=== PATIENT | female | born 1955 | race Caucasian/White ===

== ENCOUNTER 2018-09-21 23:10 | Emergency (ER) | payer OTHER, SELFPAY ==
[2018-09-21 23:15] VITALS: BP 139/93; PULSE 102; RESP 22; TEMP 36.5
[2018-09-21] MEDS: Haloperidol 5 MG/ML VIAL (23:30)
--- NOTE | 2018-09-21 23:37 | W.ED.GENAD ---
Discharge Plan Disposition Patient Disposition: HOME Condition: Stable Discharge Details Chief Complaint: PsychEval Clinical Impression: Schizoaffective disorder Primary Care Provider: Kathleen Sellers ED Provider: Ender Bo Home Meds and New Rx's Prescriptions: No Action lorazepam 1 mg tablet 1 mg PO HS Qty: 30 RF: 2 trazodone 50 mg tablet 50 mg PO HS Qty: 90 RF: 3 sertraline 50 mg tablet 50 mg PO DAILY Qty: 30 RF: 3 Discharge Instructions Instructions: Schizoaffective Disorder (ED) Additional Instructions: Please take your home medications as directed. Please utilize the resources that we have enabled for you to help and assist at home. Please follow-up with your counselor and support ancillary staff as often as possible. If you notice any worsening of your symptoms, or any new symptoms such as change in mental status, auditory visual hallucinations, vomiting, diarrhea, fever, chills, shortness of breath, chest pain, numbness, weakness, or fainting , please return immediately to the emergency department for reevaluation. Please follow up with your primary care provider as soon as possible for reassessment and reevaluation. As always, it was a pleasure participating in your medical care today. Referrals: Kathleen Sellers, SREE [Primary Care Provider] - Discharge Data Discharge Date/Time-TO BE ENTERED AT DEPARTURE: 09/22/18 10:37 Medical Decision Making <Tony Mckeon MD - Last Filed: 09/24/18 10:12> 63 yo female with hx of schizoaffective disorder with hx of paranoia comes in with state police and mental health. Apparently she hasn't taken her meds including lorazepam, sertraline and trazadone for months now. The states that her paranoia and hallucinations have been signifncantly worsening over that time and today he left and went to his brothers house. The pt called 911 when trying to call her and when PD arrived she wouldn't let them in do to paranoia, then after being on scene for about 2-3 horus mental health evaluated and was able to have her brother transport her here. She is currently only oriented to name and is sitting rocking in the bed back and forth yelling that she wants to go home. She is not able to show any meaningful thought process and constantly tries to leave the room despite her and brother telling her to stay in the room. She is not cooperative and became physical towards staff when trying to leave the room and given she doesn't have capacity to make her own decisions and my fear she is at risk to harm herself and others I am going to medically sedate her with haldol and ativan. I suspect her presentation is due to not taking her meds for her underlying psychiatric disesae as her family states this is not out of the ordinary for her when she is off her meds. pt now more calm and cooperative after 5mg haldol and 2mg ativan both IM. She is willing to let us do blood draws though is very suspicious of us. She is not willing to take any meds or other medical therapy. [facility] mental health provider states there is no qhmp to finalize the involuntary paperwork and status of thepatient. She will try again in the AM pt is now caox4 and has been cooperative, qhmp coming by this morning to do their assessment. Pt will be signed out to Dr. bo pending their eval Differential Diagnosis schizophrenia, paranoia Lab Data Lab results reviewed: Yes I reviewed the patient's lab results. <Ender Bo, DO - Last Filed: 09/22/18 20:20> The patient was signed out to me my my colleague pending psychiatric evaluation. Patient has been seen and assessed by the mental health advisors, they recommend discharge home. The patient has no homicidal or suicidal ideations. Currently she is acting normally, responds to all questions, agrees with the need to take home medications, and agrees with help and support at home. We have elicited the help of our case aide, and we will be setting up close follow-up with the patient and additional assistance at home. The patient demonstrating a normal mental status and a normal psychiatric status I feel that she can be safely discharged home as this is the recommendation of the psychiatric/mental health staff. Discussed red flags which to return with the patient and family and they understand I have extensively reviewed the treatment plan and discharge instructions with the patient and their family. I have addressed all patient concerns at this time. The patient and family was made aware of what symptoms to monitor for that would warrant a return to the emergency department. Discussed the plan with the patient and family, they demonstrate verbal understanding and agreement with our assessment and plan at this time. HPI <Tony Mckeon MD - Last Filed: 09/24/18 10:12> General Mode of arrival: ambulatory. Date/Time Provider Initiated Documentation: 09/21/18 23:20. Limitations to Documentation: altered mental status. Information obtained by: patient. History of Present Illness 63 year old F presents to the emergency department with the chief complaint of I want to go home, Patient started experiencing this year(s) (2) and it has been constant. No relieving factors improve symptom(s), No exacerbating factors reported . Patient notes no other symptoms.. Patient did receive the following treatments prior to arrival, none Related Data Home Medications Medication Instructions Recorded Confirmed sertraline 50 mg tablet 50 mg PO DAILY #30 tab 07/10/18 09/21/18 trazodone 50 mg tablet 50 mg PO HS #90 tab-cap 07/10/18 09/21/18 lorazepam 1 mg tablet 1 mg PO HS #30 tab 08/15/18 09/21/18 Previous Rx's Medication Instructions Recorded sertraline 50 mg tablet 50 mg PO DAILY #30 tab 07/10/18 trazodone 50 mg tablet 50 mg PO HS #90 tab-cap 07/10/18 lorazepam 1 mg tablet 1 mg PO HS #30 tab 08/15/18 Allergies Allergy/AdvReac Type Severity Reaction Status Date / Time prednisone AdvReac Severe Psychosis Verified 09/21/18 23:57 General Stated Complaint: PsychEval ALEXEY: 2 Review of Systems <Tony Mckeon MD - Last Filed: 09/24/18 10:12> Review of Systems Unobtainable due to mental status PFSH <Tony Mckeon MD - Last Filed: 09/24/18 10:12> Surgical History Cervical Procedure (08/31/10) Colonoscopy - MAC Ligation of fallopian tube (~1987) Family History Mother Diabetes Essential hypertension Father Heart disease Asthma Grandfather No problems noted. Grandfather No problems noted. Grandmother No problems noted. Grandmother No problems noted. Sister Asthma Brother No problems noted. Brother No problems noted. Brother No problems noted. Brother No problems noted. Social History household members: spouse current occupational status: retired pets and animals: No frequency: daily duration: < 15 minutes/day Smoking/Tobacco Use Status: Never second hand exposure: Yes alcohol intake: never anastacia/oriental orthodox: Moravian special anastacia needs: No Exam <Tony Mckeon MD - Last Filed: 09/24/18 10:12> Const General: disheveled Orientation: alert and other (oriented to name and time of day only) [facility] Head: normal to inspection Ears: external ears normal General nose exam: external nose normal Mouth: moist mucous membranes Eyes General: appearance normal, both eyes and all related structures Neck Neck: normal visual inspection Resp Effort & Inspection: normal respiratory effort and able to speak in complete sentences Cardio Rate: regular rate Skin General skin exam: no rashes or lesions noted Neuro General: alert Extrem General: normal to inspection Psych Appearance: disheveled Speech and Movement: agitated Attitude: not cooperative Course <Tony Mckeon MD - Last Filed: 09/24/18 10:12> Vital Signs Pulse 102 H 09/21/18 23:15 Respiratory Rate 09/21/18 23:15 Blood Pressure 139/93 H 09/21/18 23:15 Pulse 102 H 09/21/18 23:15 Respiratory Rate 22 09/21/18 23:15 Respiratory Effort Non-Labored 09/21/18 23:20 Blood Pressure 139/93 H 09/21/18 23:15 Blood Pressure Position Sitting 09/21/18 23:15 Comment 09/21/18 23:15
[2018-09-21] MEDS: LORazepam 2 MG/ML VIAL (23:42)
--- NOTE | 2018-09-21 23:43 | ED.GENADUL_ITS ---
Discharge Plan Disposition Patient Disposition: HOME Condition: Stable Discharge Details Chief Complaint: PsychEval Clinical Impression: Schizoaffective disorder Primary Care Provider: Kathleen Sellers ED Provider: Ender Bo Home Meds and New Rx's Prescriptions: No Action lorazepam 1 mg tablet 1 mg PO HS Qty: 30 RF: 2 trazodone 50 mg tablet 50 mg PO HS Qty: 90 RF: 3 sertraline 50 mg tablet 50 mg PO DAILY Qty: 30 RF: 3 Discharge Instructions Instructions: Schizoaffective Disorder (ED) Additional Instructions: Please take your home medications as directed. Please utilize the resources that we have enabled for you to help and assist at home. Please follow-up with your counselor and support ancillary staff as often as possible. If you notice any worsening of your symptoms, or any new symptoms such as change in mental status, auditory visual hallucinations, vomiting, diarrhea, fever, chills, shortness of breath, chest pain, numbness, weakness, or fainting , please return immediately to the emergency department for reevaluation. Please follow up with your primary care provider as soon as possible for reassessment and reevaluation. As always, it was a pleasure participating in your medical care today. Referrals: Kathleen Sellers, SREE [Primary Care Provider] - Discharge Data Discharge Date/Time-TO BE ENTERED AT DEPARTURE: 09/22/18 10:37 Medical Decision Making <Tony Mckeon MD - Last Filed: 09/24/18 10:12> 63 yo female with hx of schizoaffective disorder with hx of paranoia comes in with state police and mental health. Apparently she hasn't taken her meds including lorazepam, sertraline and trazadone for months now. The states that her paranoia and hallucinations have been signifncantly worsening over that time and today he left and went to his brothers house. The pt called 911 when trying to call her and when PD arrived she wouldn't let them in do to paranoia, then after being on scene for about 2-3 horus mental health evaluated and was able to have her brother transport her here. She is currently only oriented to name and is sitting rocking in the bed back and forth yelling that she wants to go home. She is not able to show any meaningful thought process and constantly tries to leave the room despite her and brother telling her to stay in the room. She is not cooperative and became physical towards staff when trying to leave the room and given she doesn't have capacity to make her own decisions and my fear she is at risk to harm herself and others I am going to medically sedate her with haldol and ativan. I suspect her presentation is due to not taking her meds for her underlying psychiatric disesae as her family states this is not out of the ordinary for her when she is off her meds. pt now more calm and cooperative after 5mg haldol and 2mg ativan both IM. She is willing to let us do blood draws though is very suspicious of us. She is not willing to take any meds or other medical therapy. [facility] mental health provider states there is no qhmp to finalize the involuntary paperwork and status of thepatient. She will try again in the AM pt is now caox4 and has been cooperative, qhmp coming by this morning to do their assessment. Pt will be signed out to Dr. bo pending their eval Differential Diagnosis schizophrenia, paranoia Lab Data Lab results reviewed: Yes I reviewed the patient's lab results. <Ender Bo, DO - Last Filed: 09/22/18 20:20> The patient was signed out to me my my colleague pending psychiatric evaluation. Patient has been seen and assessed by the mental health advisors, they recommend discharge home. The patient has no homicidal or suicidal ideations. Currently she is acting normally, responds to all questions, agrees with the need to take home medications, and agrees with help and support at home. We have elicited the help of our therapeutic case manager, and we will be setting up close follow-up with the patient and additional assistance at home. The patient demonstrating a normal mental status and a normal psychiatric status I feel that she can be safely discharged home as this is the recommendation of the psychiatric/mental health staff. Discussed red flags which to return with the patient and family and they understand I have extensively reviewed the treatment plan and discharge instructions with the patient and their family. I have addressed all patient concerns at this time. The patient and family was made aw are of what symptoms to monitor for that would warrant a return to the emergency department. Discussed the plan with the patient and family, they demonstrate verbal understanding and agreement with our assessment and plan at this time. HPI <Tony Mckeon MD - Last Filed: 09/24/18 10:12> General Mode of arrival: ambulatory . Date/Time Provider Initiated Documentation: 09/21/18 23:20 . Limitations to Documentation: altered mental status . Information obtained by: patient . History of Present Illness 63 year old F presents to the emergency department with the chief complaint of I want to go home, Patient started experiencing this year(s) (2) and it has been constant. No relieving factors improve symptom(s), No exacerbating factors reported . Patient notes no other symptoms.. Patient did receive the following treatments prior to arrival, none Related Data Home Medications Medication Instructions Recorded Confirmed sertraline 50 mg tablet 50 mg PO DAILY #30 tab 07/10/18 09/21/18 trazodone 50 mg tablet 50 mg PO HS #90 tab-cap 07/10/18 09/21/18 lorazepam 1 mg tablet 1 mg PO HS #30 tab 08/15/18 09/21/18 Previous Rx's Medication Instructions Recorded sertraline 50 mg tablet 50 mg PO DAILY #30 tab 07/10/18 trazodone 50 mg tablet 50 mg PO HS #90 tab-cap 07/10/18 lorazepam 1 mg tablet 1 mg PO HS #30 tab 08/15/18 Allergies Allergy/AdvReac Type Severity Reaction Status Date / Time prednisone AdvReac Severe Psychosis Verified 09/21/18 23:57 General Stated Complaint: PsychEval ALEXEY: 2 Review of Systems <Tony Mckeon MD - Last Filed: 09/24/18 10:12> Review of Systems Unobtainable due to mental status PFSH <Tony Mckeon MD - Last Filed: 09/24/18 10:12> Surgical History Cervical Procedure (08/31/10) Colonoscopy - MAC Ligation of fallopian tube (~1987) Family History Mother Diabetes Essential hypertension Father Heart disease Asthma Grandfather No problems noted. Grandfather No problems noted. Grandmother No problems noted. Grandmother No problems noted. Sister Asthma Brother No problems noted. Brother No problems noted. Brother No problems noted. Brother No problems noted. Social History household members: spouse current occupational status: retired pets and animals: No frequency: daily duration: < 15 minutes/day Smoking/Tobacco Use Status: Never second hand exposure: Yes alcohol intake: never anastacia/religious: Mosque special anastacia needs: No Exam <Tony Mckeon MD - Last Filed: 09/24/18 10:12> Const General: disheveled Orientation: alert and other (oriented to name and time of day only) [facility] Head: normal to inspection Ears: external ears normal General nose exam: external nose normal Mouth: moist mucous membranes Eyes General: appearance normal, both eyes and all related structures Neck Neck: normal visual inspection Resp Effort & Inspection: normal respiratory effort and able to speak in complete sentences Cardio Rate: regular rate Skin General skin exam: no rashes or lesions noted Neuro General: alert Extrem General: normal to inspection Psych Appearance: disheveled Speech and Movement: agitated Attitude: not cooperative Course <Tony Mckeon MD - Last Filed: 09/24/18 10:12> Vital Signs Pulse 102 H 09/21/18 23:15 Respiratory Rate 09/21/18 23:15 Blood Pressure 139/93 H 09/21/18 23:15 Pulse 102 H 09/21/18 23:15 Respiratory Rate 22 09/21/18 23:15 Respiratory Effort Non-Labored 09/21/18 23:20 Blood Pressure 139/93 H 09/21/18 23:15 Blood Pressure Position Sitting 09/21/18 23:15 Comment 09/21/18 23:15
--- NOTE | 2018-09-22 00:54 | PDOC.MHCN_ITS ---
Date of service: 09/22/18 Time of Service: 00:43 Mental Health Crisis Note Presenting Issue How did you arrive at the ED and why did you come: Patient arrived at the emergency department for disturbances in mental health. Precipitating Factors It is unknown whether or not the patient presents with SI or HI. Patient is not oriented to date, time, place, or person. According to the patient's she has not been taking her anti-psychotic medication for months. He states that she often has auditory hallucinations and thinks that people are trying to poison her. Her states that she has expressed thoughts of suicide in the past and threatened to take a bottle of her pills. Patient was crying inconsolably repeating the single sentence of i want to see Florencio. (Florencio being her ). Patient was not able to answer simple direct questions. Disposition BEHAVIOR: Patient's behavior was not consistent. At times she would regress and curl into herself while other times she would try aggressively leave the hospital emergency department. EYE CONTACT: Patient made little to no eye contact MOOD: Paranoid and Uncooperative AFFECT: Labile APPETITE: Unknown SLEEP(trouble falling/staying asleep: Unknown Plan Patient will remain at the hospital until a bed becomes available at a mental health treatment facility. Patient is on an involuntary status and the second certification is required to take place within 24 hours from receipt of EE paperwork. Signature Clinician's Name/Title: Amy Hoover - [facility] Emergency Clinician
[2018-09-22 00:57] LABS: Abs Immature Grans 0.01 k/cumm (0.0-0.09); Absolute Basophil Count 0.02 k/cumm (0.0-0.2); Absolute Eosinophil Count 0.02 k/cumm (0.0-0.7); Absolute Lymphocyte Count 1.91 k/cumm (1.2-3.4); Absolute Monocyte Count 0.64 k/cumm (0.11-0.7); Absolute Neutrophil Count 4.43 k/cumm (1.2-6.7); Basophils % 0.3; Eosinophils % 0.3; HCT 35.4 % (36.0-46.0); HGB 11.8 g/dL (12.0-15.5); Immature Grans % 0.1; Lymphocytes % 27.2; Mean Corp. HGB Concentration 33.3 g/dL (32.0-36.0); Mean Corpuscular Hemoglobin 29.9 pg (27.0-33.0); Mean Corpuscular Volume 89.6 fL (80-95); Mean Platelet Volume 9.2 fL (8.0-11.0); Monocytes % 9.1; Platelet Count 198 x1000/uL (130-400); RBC 3.95 m/cumm (4.00-5.20); RBC Distribution Width 13.2 % (11.7-14.6); White Blood Cell Count 7.03 k/cumm (4.4-10.8)
[2018-09-22 01:19] LABS: ALT 22 U/L (12-78); AST 20 U/L (15-37); Albumin 3.5 g/dL (3.4-5.0); Alkaline Phosphatase 70 U/L (46-116); Anion Gap 9.7 mmol/L (3-11); BUN 21 mg/dL (7-18); Bilirubin, Total 0.4 mg/dL (0.2-1.0); CO2 26.3 mmol/L (21.0-32.0); CREATININE 0.73 mg/dL (0.55-1.02); Calcium 9.3 mg/dL (8.5-10.1); Chloride 106 mmol/L (98-107); Glucose 113 mg/dL (70-100); Sodium 142 mmol/L (136-145); Total Protein 7.2 g/dL (6.4-8.2)
[2018-09-22 01:20] LABS: ETHANOL BLOOD < 3.0 mg/dL (<3)
[2018-09-22 01:33] LABS: Acetaminophen < 2 ug/mL (10-30); Salicylate < 2.8 mg/dL (2.8-20.0)
[2018-09-22 02:34] LABS: *AMPHETAMINES SCREEN URINE Negative (Negative); *BARBITURATES SCREEN URINE Negative (Negative); *BENZODIAZEPINES SCREEN URINE Negative (Negative); Cannabinoids THC Negative (Negative); Cocaine Screen,Urine Negative (Negative); METHADONE URINE SCREEN Negative (Negative); OPIATES URINE SCREEN Negative (Negative); Tricyclic Antidepressants Negative (Negative)
--- NOTE | 2018-09-22 03:12 | PDOC.ERCMPRO ---
- If Service Date Differs Date of service: 09/22/18 Time of Service: 03:12 Care Management Progress Note Kayla is a 63 year old female who is currently INVOLUNTARY FOR INPATIENT PSYCHIATRIC STABILIZATION. She was brought to the ED via [facility] after prolong visit with mental health at home. Kayla has a history of schizoaffective disorder, bipolar with catatonia and anxiety. She has not taken her medications in several months per her spouse. According to office notes she has declined mental health services and has been unwilling to allow most treatments per provider including assessment. Kayla also has a brother that was at the ED earlier in the evening however he and the spouse had an altercation and he was asked by Florencio to leave per report. CM completed chart review Kayla received Haldol and Ativan r/t behaviors and was in four point restraints prior to CM arrival. Kayla is now out of restraints and redirect able. EE paperwork is pending per mental health crisis provider there is not a HP available to complete the required paperwork. During CM assessment Kayla presents withdrawn she is able to engage at times with CM. She is currently cooperative, CM has provided the opportunity for Kayla to articulate her needs, concerns and reviewed safety plan with her. Kayla expresses that she does not want to be at the hospital at this time. However she is able to redirect and express that she would like her spouse Florencio to stay with her. Kayla is unaware of the time and appears startled when CM informs her that it is 2:00 am. Kayla states that she will try to rest as long as her spouse can be in the room. Kayla was offered warm blankets, lights turned down to provide atmosphere for rest. Huddle Participants: Flor Babcock RN supervisor hot dip plating, Rosa duffy RN, crisis mental health provider Amy, and manager of transportation. Date and time: 19909/22/18 B.W room 5 ED. Safety plan has been established with patient, and care team, to adhere to patient goals, identify restrictions based on behavioral status, address nutrition, and determine allowed personal belongings, tools for hygiene and personal care. Determine level of activity including ambulation, level of supervision, visitors, and determine privileges based on behaviors and level of engagement by pt. SAFETY PLAN: 1. Kayla does not express SI or HI ideation at this time. She will remain in her own clothing. 2. Will remain in room under direct supervision of qualified one-on-one staff at all times provided by [employer], [employer] emergency operator. 3. May have paper cups, plates, finger foods as well as a metal spoon with which to eat meals. [facility] staff will be responsible for accounting of utensils after meals. 4. Follow [facility] Management of the Admitted Behavioral Health Patient policy. 5. Comfort bath system only. 6. No personal belongings in the room other than her clothes she is wearing. 7. Visitors will include only her spouse Florencio at this time. 8. Activities include coloring books, crayons, soft tip markers, music with wireless head phones if available, and television. 9. Bathroom privileges may go to the bathroom with staff escort. Placement: No pending bed or placement sought at this time per mental health awaiting [facility] assessment. Patient is currently involuntarily at [facility] Frontline Manager Of Exhibitions And Collections no placement has been sought at this time due to pending [facility] assessment. CM will contact [facility] through [facility] and request a [facility] come into assess patient and complete the EE assessment. Please contact the Tone Cabinet Assembler Dip Painter ([phone]) and [facility] Manager Of Exhibitions And Collections ([phone]) for any needed changes in the Safety Plan. Safety plan has been provided to interdepartmental care team including Clinical Coordinator, Nursing Greaser Helper.
--- NOTE | 2018-09-22 03:16 | CMPROGNOTE_ITS ---
- If Service Date Differs Date of service: 09/22/18 Time of Service: 03:12 Care Management Progress Note Kayla is a 63 year old female who is currently INVOLUNTARY FOR INPATIENT PSYCHIATRIC STABILIZATION. She was brought to the ED via [facility] after prolong visit with mental health at home. Kayla has a history of schizoaffective disorder, bipolar with catatonia and anxiety. She has not taken her medications in several months per her spouse. According to office notes she has declined mental health services and has been unwilling to allow most treatments per provider including assessment. Kyala also has a brother that was at the ED earlier in the evening however he and the spouse had an altercation and he was asked by Florencio to leave per report. CM completed chart review Kayla received Haldol and Ativan r/t behaviors and was in four point restraints prior to CM arrival. Kayla is now out of restraints and redirect able. EE paperwork is pending per mental health crisis provider there is not a HP available to complete the required paperwork. During CM assessment Kayla presents withdrawn she is able to engage at times with CM. She is currently cooperative, CM has provided the opportunity for Kayla to articulate her needs, concerns and reviewed safety plan with her. Kayla e xpresses that she does not want to be at the hospital at this time. However she is able to redirect and express that she would like her spouse Florencio to stay with her. Kayla is unaware of the time and appears startled when CM informs her that it is 2:00 am. Kayla states that she will try to rest as long as her spouse can be in the room. Kayla was offered warm blankets, lights turned down to provi de atmosphere for rest. Huddle Participants: Flor Babcock RN vending supervisor, Rosa duffy RN, crisis mental health provider Amy, and safety and health manager. Date and time: 0200 09/22/18 B.W room 5 ED. Safety plan has been established with patient, and care team, to adhere to patient goals, identify restrictions based on behavioral status, address nutrition, and determine allowed personal belongings, tools for hygiene and personal care. Determine level of activity including ambulation, level of supervision, visitors, and determine privileges based on behaviors and level of engagement by pt. SAFETY PLAN: 1. Kayla does not express SI or HI ideation at this time. She will remain in her own clothing. 2. Will remain in room under direct supervision of qualified one-on-one staff at all times provided by ALESIA, AUTOPSY PATHOLOGIST senior account clerk. 3. May have paper cups, plates, finger foods as well as a metal spoon with which to eat meals. [facility] staff will be responsible for accounting of utensils after meals. 4. Follow [facility] Management of the Admitted Behavioral Health Patient policy. 5. Comfort bath system only. 6. No personal belongings in the room other than her clothes she is wearing. 7. Visitors will include only her spouse Florencio at this time. 8. Activities include coloring books, crayons, soft tip markers, music with wireless head phones if available, and television. 9. Bathroom privileges may go to the bathroom with staff escort. Placement: No pending bed or placement sought at this time per mental health awaiting [facility] assessment. Patient is currently involuntarily at [facility] Frontline Senior Communications Specialist no placement has been sought at this time due to pending [facility] assessment. CM will contact [facility] through [facility] and request a [facility] come into assess patient and complete the EE assessment. Please contact the Manufacturing Lab Technician Rope Laying Machine Operator ([phone]) and [facility] Senior Communications Specialist ([phone]) for any needed changes in the Safety Plan. Safety plan has been provided to interdepartmental care team including Clinical Coordinator, Nursing Residential Specialist.
--- NOTE | 2018-09-22 06:55 | NUR.NOTE ---
patient appears to be asleep, in recliner and cadre outside door.
--- NOTE | 2018-09-22 07:18 | NUR.NOTE ---
Assumed care of patient, one to one is at the bedside. Pt. appears disheveled, she is calm and cooperative. Sitting up at the edge of the bed eating breakfast with safety tray. is at the bedside. Will continue to monitor.
[2018-09-22 07:20] VITALS: BP 104/64; PULSE 98; RESP 16; TEMP 36.9; O2SAT 97
--- NOTE | 2018-09-22 08:02 | NUR.NOTE ---
Two mental health providers are at the bedside.
--- NOTE | 2018-09-22 08:15 | PDOC.MHCN ---
Date of service: 09/22/18 Time of Service: 08:16 Mental Health Crisis Note Presenting Issue How did you arrive at the ED and why did you come: Patient initially arrived at the emergency department late last night for disturbances in mental health. Precipitating Factors Patient denies both SI and HI. Patient states that she just wants to go home. Patient is oriented to date, person, and place. Patient is slow to respond but the context of her response is appropriate. Disposition BEHAVIOR: No abnormal behavior to report. Patient sat up in bed to talk with this entry writer. EYE CONTACT: Patient makes appropriate eye contact MOOD: Calm and cooperative AFFECT: Broad APPETITE: Good SLEEP(trouble falling/staying asleep: Good Plan Patient no longer meets in-patient level of care in regards to her mental health. Patient is refusing all services provided by [facility]. This entry writer will provide the patient and her with a list of mental health providers in the community as well as the 23/04 emergency phone number to [facility]. Signature Clinician's Name/Title: Amy Hoover - [facility] Emergency Clinician
--- NOTE | 2018-09-22 08:35 | PDOC.MHCN_ITS ---
Date of service: 09/22/18 Time of Service: 08:16 Mental Health Crisis Note Presenting Issue How did you arrive at the ED and why did you come: Patient initially arrived at the emergency department late last night for disturbances in mental health. Precipitating Factors Patient denies both SI and HI. Patient states that she just wants to go home. Patient is oriented to date, person, and place. Patient is slow to respond but the context of her response is appropriate. Disposition BEHAVIOR: No abnormal behavior to report. Patient sat up in bed to talk with this magazine writer. EYE CONTACT: Patient makes appropriate eye contact MOOD: Calm and cooperative AFFECT: Broad APPETITE: Good SLEEP(trouble falling/staying asleep: Good Plan Patient no longer meets in-patient level of care in regards to her mental health. Patient is refusing all services provided by [facility]. This magazine writer will provide the patient and her with a list of mental health providers in the community as well as the 23/04 emergency phone number to [facility]. Signature Clinician's Name/Title: Amy Hoover - [facility] Emergency Clinician
--- NOTE | 2018-09-22 10:19 | NUR.NOTE ---
Pt is calm, awaiting d/c instructions, supportive is at the bedside.
[2018-09-22 10:41] VITALS: PULSE 90; RESP 16
--- NOTE | 2018-09-22 14:27 | PDOC.ERCMPRO ---
- If Service Date Differs Date of service: 09/22/18 Time of Service: 09:30 Care Management Progress Note CM met with team to determine plan of care. [facility] has determine patient will be discharged to home. Patient wants to return home and is not currently having SI or HI ideation. She declines any additional services in the home she states it is okay to contact her by phone. Kayla and her spouse describe the difficulty they have financially and with social isolation. Florencio was diagnosed with CLL and has not been able to work. Kayla does not like to take any medication and does not allow anyone in the home due to schizoeffective disorder. They are willing to have referral to [facility] for community supports and renounces and a referral to ROSINA Son at [facility] to assist with financial resources and Florencio's disability. CM provided education to patient related to medication management and diagnosis of mental health disorder. Kayla states she will try and take her medications at home to stabilize and remain of out the ED. CM provided written resources for Community agencies in the area. CM requested [facility] follow up with patient over the phone after discharge per the [facility] crisis provider they are unable to this as the patient declined services. CM will send referrals to chronic long term care administrator, [facility] and [facility] for supports in the community. Kayla and her spouse are appreciative of the referrals and time spent with CM voicing their concerns.
--- NOTE | 2018-09-22 14:37 | CMPROGNOTE_ITS ---
- If Service Date Differs Date of service: 09/22/18 Time of Service: 09:30 Care Management Progress Note CM met with team to determine plan of care. [facility] has determine patient will be discharged to home. Patient wants to return home and is not currently having SI or HI ideation. She declines any additional services in the home she states it is okay to contact her by phone. Kayla and her spouse describe the difficulty they have financially and with social isolation. Florencio was diagnosed with CLL and has not been able to work. Kayla does not like to take any medication and does not allow anyone in the home due to schizoeffective disorder. They are willing to have referral to [facility] for community supports and renounces and a referral to ROSINA Son at [facility] to assist with financial resources and Florencio's disability. CM provided education to patient related to medication management and diagnosis of mental health disorder. Kayla states she will try and take her medications at home to stabilize and remain of out the ED. CM provided written resources for Community agencies in the area. CM requested [facility] follow up with patient over the phone after discharge per the [facility] crisis provider they are unable to this as the patient declined services. CM will send referrals to chronic caretaker resort, [facility] and [facility] for supports in the community. Kayla and her spouse are appreciative of the referrals and time spent with CM voicing their concerns.
== END 2018-09-22 10:37 | disposition home or self-care (01) ==
PROVIDERS: Emergency Medicine; Emergency Provider Student in an Organized Health Care Education/Training Program
DX: F25.9 Schizoaffective disorder, unspecified (principal); T42.4X6A Underdosing of benzodiazepines, initial encounter; T43.216A Underdosing of selective serotonin and norepinephrine reuptake inhibitors, initial encounter; Z91.128 Patient's intentional underdosing of medication regimen for other reason; Z78.1 Physical restraint status
CPT/HCPCS: 36415; 80053; 80307; 96372; 99285; 80320; 80329; 84443; 85025; 99284; J1630; J2060

== ENCOUNTER 2018-10-27 12:14 | Emergency (ER) | payer OTHER, SELFPAY ==
[2018-10-27 12:24] VITALS: BP 119/70; PULSE 150; RESP 27; TEMP 37.2; O2SAT 99
--- NOTE | 2018-10-27 12:50 | W.ED.GENAD ---
Discharge Plan Disposition Patient Disposition: HOME Condition: Stable Discharge Details Chief Complaint: GI Bleed Clinical Impression: Schizoaffective disorder, Dysfunctional uterine bleeding Primary Care Provider: Kathleen Sellers ED Provider: Demetrio Escudero Home Meds and New Rx's Prescriptions: Continued trazodone 50 mg tablet 50 mg PO HS Qty: 90 RF: 3 sertraline 50 mg tablet 50 mg PO DAILY Qty: 30 RF: 3 lorazepam 0.5 mg tablet 1 mg PO .QHS PRN (Reason: agitation) Qty: 30 RF: 2 Discharge Instructions Additional Instructions: You have agreed to take your medicines and to allow increased in-home services. We will have our care management team get you an appointment for you to follow-up in gynecology with Dr. Uribe or Dr. Garcia. They will help you in applying for Medicaid and other programs. Human services will follow up with you as well. Return for any acute concern. Medical Decision Making 63-year-old female with severe anxiety and schizoaffective disorder presents with her from home complaining of intermittent episodes of brown and bloody stools that have been loose over weeks time. She does have a history of colitis but has not recently seen a grain elevator clerk. She also has a history of dysfunctional uterine bleeding. She was seen in clinic on October 21 but refused evaluation due to paranoia and anxiety. After initial triage, patient began to try and leave, her stated that she was not acting herself due to overwhelming anxiety and paranoia about the health care system; she was unable to clearly state to me the risks of leaving, therefore she was given Ativan and Haldol intramuscularly after discussion with the patient and her . Screening laboratories obtained and are notable for slight hyponatremia of 133, hematocrit of 35 which is unchanged since lab draw at the end of August. Otherwise unremarkable. On my exam I feel that she most likely has evidence of dysfunctional uterine bleeding. Patient will not consent to invasive or digital exam. I discussed the case with Dr. Lagos of gynecology, she agrees with outpatient referral and consideration of endometrial biopsy. No indication for further medical workup at this time. Patient has received a medical screening examination, both her paranoia and anxiety improved with medication, pulse improved, and she agreed to interview with mental health services. Following crisis evaluation, the patient has agreed to take her medicines, to allow in-home services. HPI General Mode of arrival: ambulatory. Date/Time Provider Initiated Documentation: 10/27/18 12:17. Limitations to Documentation: no limitations. Information obtained by: patient and family. History of Present Illness 63 year old F presents to the emergency department with the chief complaint of Bloody and brown stool over weeks time, described as moderate, Quality is described as dull, and is localized to the abdomen. Patient started experiencing this day(s) and it has been intermittent. No relieving factors improve symptom(s), No exacerbating factors reported . Patient did receive the following treatments prior to arrival, other (Severe anxiety) HPI Narrative: Patient presents with her complaining of anxiety regarding brown and bloody stools over weeks time. She refused evaluation at primary care physician's office this week. She agreed to be transported by her to the ER today. She is intermittent crampy abdominal discomfort. She had a history of colitis in the past and is currently been lost to follow-up with her grain elevator clerk Related Data Home Medications Medication Instructions Recorded Confirmed sertraline 50 mg tablet 50 mg PO DAILY #30 tab 07/10/18 10/23/18 trazodone 50 mg tablet 50 mg PO HS #90 tab-cap 07/10/18 10/23/18 lorazepam 0.5 mg tablet 1 mg PO .QHS PRN #30 tab 10/18/18 10/23/18 Previous Rx's Medication Instructions Recorded sertraline 50 mg tablet 50 mg PO DAILY #30 tab 07/10/18 trazodone 50 mg tablet 50 mg PO HS #90 tab-cap 07/10/18 lorazepam 0.5 mg tablet 1 mg PO .QHS PRN #30 tab 10/18/18 Allergies Allergy/AdvReac Type Severity Reaction Status Date / Time prednisone AdvReac Severe Psychosis Verified 10/21/18 11:06 General Stated Complaint: GI Bleed ALEXEY: 2 Review of Systems Review of Systems 6 systems reviewed and otherwise neg [facility] Medical History Mucous polyp of cervix (Resolved) Mood disorder (Acute) Hyperlipidemia (Acute 01/22/13) Dysfunctional uterine bleeding (Acute) C. difficile colitis (Inactive 03/30/14) Anxiety (Acute 01/22/13) Schizoaffective disorder (Active) Bipolar disorder (Active) Ulcerative colitis (Active) C. difficile diarrhea (Inactive) Surgical History Cervical Procedure (08/31/10) Colonoscopy - MAC Ligation of fallopian tube (~1987) Family History Mother Diabetes Essential hypertension Father Heart disease Asthma Grandfather No problems noted. Grandfather No problems noted. Grandmother No problems noted. Grandmother No problems noted. Sister Asthma Brother No problems noted. Brother No problems noted. Brother No problems noted. Brother No problems noted. Social History household members: spouse current occupational status: retired pets and animals: No frequency: daily duration: < 15 minutes/day Smoking/Tobacco Use Status: Never second hand exposure: Yes alcohol intake: never anastacia/zoroastrian: Nondenominational special anastacia needs: No Exam Narrative Exam Narrative: GEN: awake, alert, oriented 3. Very anxioous, interactive. HEAD: Normocephalic, atraumatic ENT: Mucous membranes dry, oropharynx unremarkable, External ear exam unremarkable EYES: PERRL, EOMI NECK: Full ROM, no MIGUELITO, no menigismus CHEST/RESP: Nontender, clear to auscultation bilateral, no wheeze/rhonchi/rales CARDIOVASCULAR: (initial tachycardia, corrected to RRR on re-exam), no murmur, rub blossom. 2+ Rad pulse bilateral ABDOMEN: Soft, nontender, no mass. +Bowel sounds. Brownish discharge present in underpants and on perineum. Patient is refusing digital exam EXT: Full ROM, no edema, no rash Neuro: Grossly normal neurologic exam, conversant, interactive. Psych: Speech fluent, thoughts congruent, affect anxious Course Vital Signs Temperature 37.2 C 10/27/18 12:24 Pulse 150 H 10/27/18 12:24 Respiratory Rate 27 H 10/27/18 12:24 Blood Pressure 119/70 10/27/18 12:24 Pulse Oximetry 99 10/27/18 12:24 Temperature 37.2 C 10/27/18 12:24 Pulse 150 H 10/27/18 12:24 Respiratory Rate 27 H 10/27/18 12:24 Blood Pressure 119/70 10/27/18 12:24 Pulse Oximetry 99 10/27/18 12:24 Oxygen Delivery Method Room Air 10/27/18 12:24 Oxygen Flow Rate 0 10/27/18 12:24 Comment 10/27/18 12:24
--- NOTE | 2018-10-27 12:53 | ED.GENADUL_ITS ---
Discharge Plan Disposition Patient Disposition: HOME Condition: Stable Discharge Details Chief Complaint: GI Bleed Clinical Impression: Schizoaffective disorder, Dysfunctional uterine bleeding Primary Care Provider: Kathleen Sellers ED Provider: Demetrio Escudero Home Meds and New Rx's Prescriptions: Continued trazodone 50 mg tablet 50 mg PO HS Qty: 90 RF: 3 sertraline 50 mg tablet 50 mg PO DAILY Qty: 30 RF: 3 lorazepam 0.5 mg tablet 1 mg PO .QHS PRN (Reason: agitation) Qty: 30 RF: 2 Discharge Instructions Additional Instructions: You have agreed to take your medicines and to allow increased in-home services. We will have our care management team get you an appointment for you to follow- up in gynecology with Dr. Uribe or Dr. Garcia. They will help you in applying for Medicaid and other programs. Human services will follow up with you as well. Return for any acute concern. Medical Decision Making 63-year-old female with severe anxiety and schizoaffective disorder presents with her from home complaining of intermittent episodes of brown and bloody stools that have been loose over weeks time. She does have a history of colitis but has not recently seen a cdl service technician. She also has a history of dysfunctional uterine bleeding. She was seen in clinic on October 21 but refused evaluation due to paranoia and anxiety. After initial triage, patient began to try and leave, her stated that she was not acting herself due to overwhelming anxiety and paranoia about the health care system; she was unable to clearly state to me the risks of leaving, therefore she was given Ativan and Haldol intramuscularly after discussion with the patient and her . Screening laboratories obtained and are notable for slight hyponatremia of 133, hematocrit of 35 which is unchanged since lab draw at the end of August. Otherwise unremarkable. On my exam I feel that she most likely has evidence of dysfunctional uterine bleeding. Patient will not consent to invasive or digital exam. I discussed the case with Dr. Lagos of gynecology, she agrees with outpatient referral and consideration of endometrial biopsy. No indication for further medical workup at this time. Patient has received a medical screening examination, both her paranoia and anxiety improved with medication, pulse improved, and she agreed to interview with mental health services. Following crisis evaluation, the patient has agreed to take her medicines, to allow in-home services. HPI General Mode of arrival: ambulatory . Date/Time Provider Initiated Documentation: 10/27/18 12:17 . Limitations to Documentation: no limitations . Information obtained by: patient and family . History of Present Illness 63 year old F presents to the emergency department with the chief complaint of Bloody and brown stool over weeks time, described as moderate, Quality is described as dull, and is localized to the abdomen. Patient started experiencing this day(s) and it has been intermittent. No relieving factors improve symptom(s), No exacerbating factors reported . Patient did receive the following treatments prior to arrival, other (Severe anxiety) HPI Narrative: Patient presents with her complaining of anxiety regarding brown and bloody stools over weeks time. She refused evaluation at primary care physician's office this week. She agreed to be transported by her to the ER today. She is intermittent crampy abdominal discomfort. She had a history of colitis in the past and is currently been lost to follow-up with her cdl service technician Related Data Home Medications Medication Instructions Recorded Confirmed sertraline 50 mg tablet 50 mg PO DAILY #30 tab 07/10/18 10/23/18 trazodone 50 mg tablet 50 mg PO HS #90 tab-cap 07/10/18 10/23/18 lorazepam 0.5 mg tablet 1 mg PO .QHS PRN #30 tab 10/18/18 10/23/18 Previous Rx's Medication Instructions Recorded sertraline 50 mg tablet 50 mg PO DAILY #30 tab 07/10/18 trazodone 50 mg tablet 50 mg PO HS #90 tab-cap 07/10/18 lorazepam 0.5 mg tablet 1 mg PO .QHS PRN #30 tab 10/18/18 Allergies Allergy/AdvReac Type Severity Reaction Status Date / Time prednisone AdvReac Severe Psychosis Verified 10/21/18 11:06 General Stated Complaint: GI Bleed ALEXEY: 2 Review of Systems Review of Systems 6 systems reviewed and otherwise neg [facility] Medical History Mucous polyp of cervix (Resolved) Mood disorder (Acute) Hyperlipidemia (Acute 01/22/13) Dysfunctional uterine bleeding (Acute) C. difficile colitis (Inactive 03/30/14) Anxiety (Acute 01/22/13) Schizoaffective disorder (Active) Bipolar disorder (Active) Ulcerative colitis (Active) C. difficile diarrhea (Inactive) Surgical History Cervical Procedure (08/31/10) Colonoscopy - MAC Ligation of fallopian tube (~1987) Family History Mother Diabetes Essential hypertension Father Heart disease Asthma Grandfather No problems noted. Grandfather No problems noted. Grandmother No problems noted. Grandmother No problems noted. Sister Asthma Brother No problems noted. Brother No problems noted. Brother No problems noted. Brother No problems noted. Social History household members: spouse current occupational status: retired pets and animals: No frequency: daily duration: < 15 minutes/day Smoking/Tobacco Use Status: Never second hand exposure: Yes alcohol intake: never anastacia/mormonism: Muslim special anastacia needs: No Exam Narrative Exam Narrative: GEN: awake, alert, oriented 3. Very anxioous, interactive. HEAD: Normocephalic, atraumatic ENT: Mucous membranes dry, oropharynx unremarkable, External ear exam unremarkable EYES: PERRL, EOMI NECK: Full ROM, no MIGUELITO, no menigismus CHEST/RESP: Nontender, clear to auscultation bilateral, no wheeze/rhonchi/rales CARDIOVASCULAR: (initial tachycardia, corrected to RRR on re-exam), no murmur, rub blossom. 2+ Rad pulse bilateral ABDOMEN: Soft, nontender, no mass. +Bowel sounds. Brownish discharge present in underpants and on perineum. Patient is refusing digital exam EXT: Full ROM, no edema, no rash Neuro: Grossly normal neurologic exam, conversant, interactive. Psych: Speech fluent, thoughts congruent, affect anxious Course Vital Signs Temperature 37.2 C 10/27/18 12:24 Pulse 150 H 10/27/18 12:24 Respiratory Rate 27 H 10/27/18 12:24 Blood Pressure 119/70 10/27/18 12:24 Pulse Oximetry 99 10/27/18 12:24 Temperature 37.2 C 10/27/18 12:24 Pulse 150 H 10/27/18 12:24 Respiratory Rate 27 H 10/27/18 12:24 Blood Pressure 119/70 10/27/18 12:24 Pulse Oximetry 99 10/27/18 12:24 Oxygen Delivery Method Room Air 10/27/18 12:24 Oxygen Flow Rate 0 10/27/18 12:24 Comment 10/27/18 12:24
[2018-10-27] MEDS: LORazepam 2 MG/ML VIAL IVP (13:18)
[2018-10-27] MEDS: Haloperidol 5 MG/ML VIAL IM (13:19)
[2018-10-27 14:38] LABS: Abs Immature Grans 0.08 k/cumm (0.0-0.09); Absolute Basophil Count 0.02 k/cumm (0.0-0.2); Absolute Eosinophil Count 0.03 k/cumm (0.0-0.7); Absolute Lymphocyte Count 0.83 k/cumm (1.2-3.4); Absolute Monocyte Count 1.12 k/cumm (0.11-0.7); Absolute Neutrophil Count 6.28 k/cumm (1.2-6.7); Basophils % 0.2; Eosinophils % 0.4; HGB 11.5 g/dL (12.0-15.5); Lymphocytes % 9.9; Mean Corp. HGB Concentration 32.9 g/dL (32.0-36.0); Mean Corpuscular Hemoglobin 28.2 pg (27.0-33.0); Mean Corpuscular Volume 85.8 fL (80-95); Monocytes % 13.4; Neutrophils % 75.1; Platelet Count 497 x1000/uL (130-400); RBC 4.08 m/cumm (4.00-5.20); RBC Distribution Width 13.1 % (11.7-14.6); White Blood Cell Count 8.36 k/cumm (4.4-10.8)
[2018-10-27 14:42] LABS: Prothrombin Time 11.5 sec (9.3-11.0)
[2018-10-27 14:45] LABS: ALT 14 U/L (12-78); AST 14 U/L (15-37); Alkaline Phosphatase 79 U/L (46-116); Anion Gap 8.3 mmol/L (3-11); BUN 8 mg/dL (7-18); Bilirubin, Total 0.5 mg/dL (0.2-1.0); CO2 27.7 mmol/L (21.0-32.0); CREATININE 0.95 mg/dL (0.55-1.02); Calcium 9.1 mg/dL (8.5-10.1); Chloride 97 mmol/L (98-107); Glucose 168 mg/dL (70-100); Potassium 4.6 mmol/L (3.5-5.1); Sodium 133 mmol/L (136-145); Total Protein 6.9 g/dL (6.4-8.2)
[2018-10-27 14:48] LABS: INR 1.1 (0.9-1.1)
[2018-10-27 14:51] LABS: Acetaminophen < 2 ug/mL (10-30); Salicylate < 2.8 mg/dL (2.8-20.0)
[2018-10-27 14:57] LABS: Diff Comment Agrees w/ Instrument; RBC Morphology Normal
[2018-10-27 15:00] LABS: TSH 0.59 uIU/mL (0.358-3.74)
[2018-10-27 15:01] LABS: ETHANOL BLOOD < 3.0 mg/dL (<3)
--- NOTE | 2018-10-27 17:28 | PDOC.MHCN ---
Date of service: 10/27/18 Time of Service: 17:29 Mental Health Crisis Note Presenting Issue How did you arrive at the ED and why did you come: Patient arrived at ER with her , she had been having serious vaginal bleeding . She has some psychiatric issues and Dr. Escudero felt she needed to have a mental health evaluation due to her schizoaffective diagnosis and her anxiety over treatment. Precipitating Factors Patient is not suicidal or homicidal. She has not been med compliant and her is at his wits end because he can not get her to agree to take her medication. She herself just wants to go home. Her sister is here as well and they do not feel that she is getting the care she needs at home. Her medical condition needs further evaluation by her primary care Disposition BEHAVIOR: She is withdrawn and somewhat uncommunicative EYE CONTACT: She will make some eye contact but mostly shuts her eyes. MOOD: Her mood appears depressed. AFFECT: Her affect is congruent to her mood. APPETITE: She is hungry but won't eat until she goes home SLEEP(trouble falling/staying asleep: not a problem today. Plan This patient was pretty unresponsivie but did agree to sign paperwork for followup from [facility]. She does not want to receive care or services but she is vulnerable due to not caring for herself and her medical issues. She needs services for help with personal care as her is not well. She did agree to take her medication and she did agree to have followup from Care Management at [facility] as well. Contact will be attempted to help her get wrap around services and encourage her to follow up with her medical health care. Signature Clinician's Name/Title: HANSA BrothersKalie [facility] Emergency Services Clinician
--- NOTE | 2018-10-27 17:41 | PDOC.MHCN_ITS ---
Date of service: 10/27/18 Time of Service: 17:29 Mental Health Crisis Note Presenting Issue How did you arrive at the ED and why did you come: Patient arrived at ER with her , she had been having serious vaginal bleeding . She has some psychiatric issues and Dr. Escudero felt she needed to have a mental health evaluation due to her schizoaffective diagnosis and her anxiety over treatment. Precipitating Factors Patient is not suicidal or homicidal. She has not been med compliant and her is at his wits end because he can not get her to agree to take her medication. She herself just wants to go home. Her sister is here as well and they do not feel that she is getting the care she needs at home. Her medical condition needs further evaluation by her primary care Disposition BEHAVIOR: She is withdrawn and somewhat uncommunicative EYE CONTACT: She will make some eye contact but mostly shuts her eyes. MOOD: Her mood appears depressed. AFFECT: Her affect is congruent to her mood. APPETITE: She is hungry but won't eat until she goes home SLEEP(trouble falling/staying asleep: not a problem today. Plan This patient was pretty unresponsivie but did agree to sign paperwork for followup from [facility]. She does not want to receive care or services but she is vulnerable due to not caring for herself and her medical issues. She needs services for help with personal care as her is not well. She did agree to take her medication and she did agree to have followup from Care Management at [facility] as well. Contact will be attempted to help her get wrap around services and encourage her to follow up with her medical health care. Signature Clinician's Name/Title: HANSA BrothersKalie [facility] Emergency Services Clinician
--- NOTE | 2018-10-28 07:49 | PDOC.ERCMPRO ---
Care Management Progress Note 10/28-Dr. Escudero requested assistance with a PCP f/u as soon as possible for increase in home health services and assistance with Medicaid. Will transfer this to the Tavern Keeper at [facility]. Kathleen KING. Dr. Escudero also requested assistance with an END STAPLER f/u this week for dysfunctional uterine bleeding. Referral faxed to [facility] and to [facility] this am.
--- NOTE | 2018-10-28 07:51 | CMPROGNOTE_ITS ---
Care Management Progress Note 10/28-Dr. Escudero requested assistance with a PCP f/u as soon as possible for increase in home health services and assistance with Medicaid. Will transfer this to the Merchandise Pickup/Receiving Associate at [facility]. Kathleen KING. Dr. Escudero also requested assistance with an PRODUCTION PATTERN MAKER f/u this week for dysfunctional uterine bleeding. Referral faxed to [facility] and to [facility] this am.
== END 2018-10-27 17:06 | disposition home or self-care (01) ==
PROVIDERS: Emergency Provider Emergency Medicine
DX: N93.8 Other specified abnormal uterine and vaginal bleeding (principal); F41.9 Anxiety disorder, unspecified; F25.9 Schizoaffective disorder, unspecified
CPT/HCPCS: 36415; 80053; 86850; 86900; 86901; 96372; 96374; 99284; 80320; 80329; 84443; 85025; 85610; J1630; J2060

== ENCOUNTER 2018-11-06 13:58 | Outpatient (REF) | payer OTHER, SELFPAY ==
--- NOTE | 2018-11-06 13:20 | ENDOMET_PTH ---
PATIENT: Dacia Pedro LOC: [facility] U#:[id number] AGE/SX: 63/F ROOM: RE11/06/[address]: Bernie Lagos : 1955 BED: DIS: 11/06/2018 SPEC #: [id number] RECD: 11/06/18 18:02 STATUS: ANGELO REQ #: [id number] GINNY: 11/06/18 13:[address]: Bernie Lagos DEPT: Surgical Specimen RECD BY: Brianne Abdul ENTERED: 11/06/18 18:02 SP TYPE: Endomet OTHR DR: Kathleen Sellers APRN Tissues: 1 - ENDOMETRIUM BX/DORCASETTE Procedures: GROSS AND MICRO LEVEL 4 Comments: [id number]
== END 2018-11-06 14:18 ==
LOC: LBN 13:58
PROVIDERS: Visit Provider Obstetrics & Gynecology Gynecology
DX: N85.8 Other specified noninflammatory disorders of uterus (principal); N95.0 Postmenopausal bleeding; N83.8 Other noninflammatory disorders of ovary, fallopian tube and broad ligament
CPT/HCPCS: 88305

== ENCOUNTER 2023-02-02 13:36 | Inpatient (IN) | payer MEDICARE, SELFPAY ==
[2023-02-02] VITALS (67 sets, daily range): BP systolic 84–145; BP diastolic 48–86; PULSE 90–142; RESP 9–28; TEMP 36.5–37; O2SAT 94–100
--- NOTE | 2023-02-02 14:15 | RT.EKG_ITS ---
APPROVED REPORT Exam: Resting ECG Reason for Exam: weakness Patient Location: E HR:101 bpm ECG Measurements Heart Rate 101 AXIS DC 123 P 40 QRSd 81 QRS 43 QT 337 T 51 QTc 437 Conclusion Sinus tachycardia...rate> 99 Normal Alto normal qt
[2023-02-02] MEDS: LORazepam 2 MG/ML VIAL 1 MG IM ×2 (14:30→14:58)
--- NOTE | 2023-02-02 14:30 | DI.CT_ITS ---
Exam(s) CT CHEST/ABD/PEL W EXAM: CT CHEST/ABD/PEL W CLINICAL HISTORY: epigastric pain, gi bleeding. TECHNIQUE: Imaging Protocol: Axial computed tomography images with coronal and sagittal reformatted images were created and reviewed CONTRAST MATERIAL: Intravenous: Omnipaque 350 Contrast volume:100 ml Oral: None COMPARISON: No exams were available for comparison FINDINGS: CHEST: LUNGS: No infiltrates nor pleural effusions. No concerning pulmonary nodules. No findings in the tr achea and mainstem bronchi. MEDIASTINUM: There is no hilar nor mediastinal adenopathy. Thyroid nodules noted. Largest is in the anterior aspect left thyroid lobe. CARDIAC: Heart size is normal. There is no pericardial effusion.Caliber of the thoracic aorta is wit hin normal limits. OSSEOUS: No significant osseous lesions.. ABDOMEN: All the images of the abdomen are blurred by motion artifact. There is no obvious ascites. LIVER: There are no focal hepatic lesions nor dilatation of intrahepatic ducts. GALLBLADDER/BILIARY: No obvious gallbladder pathology. CBD is not dilated. PANCREAS: No evidence of pancreatic mass nor dilatation of the pancreatic duct. SPLEEN: Spleen is not enlarged. There are no intrasplenic lesions. Splenic and portal veins are stapleton nt. ADRENALS: There are no significant adrenal masses. KIDNEYS: There are parapelvic cysts in left kidney. No true hydronephrosis. No solid renal masses. No obvious abnormality in the urinary bladder.. ABDOMINAL AORTA: Abdominal aorta is not enlarged. Celiac and superior mesenteric arteries are patent . MINDI also appears patent. LYMPH NODES: There is no retroperitoneal nor paraaortic adenopathy. ABDOMINAL WALL: No evidence of significant anterior abdominal wall nor inguinal hernia. 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 There is circumferential thickening of the wall of the colon thr oughout its length. Diameter is upper normal.Small bowel loops are fluid-filled but not dilated. Al so not edematous. PELVIS: LYMPH NODES: There is no intrapelvic nor inguinal adenopathy. GI: Appendix not identified.No evidence of sigmoid diverticulitis. URINARY BLADDER: No calculi nor masses evident REPRODUCTIVE: Uterus and adnexal regions unremarkable. OSSEOUS: No significant osseous lesions. IMPRESSION: 1. No acute pulmonary findings. No pleural effusions nor intrathoracic adenopathy. Thyroid nodules incidentally noted. 2. There is a pickett colitis pattern noted in the abdomen. Colonoscopy recommended. 3. No obvious ascites. First read by [facility]. RADIATION DOSE DELIVERED: 803.93mGy.cm Total DLP DATA REPOSITORY: All CT scans at this facility are submitted to the National Radiology Data Registry (NRDR) Dose Index Registry (DIR) with the [employer] ([employer]). RADIATION OPTIMIZATION: All CT scans at this facility use at least one of these dose optimization te chniques: automated exposure control; mA and/or kV adjustment per patient size (includes targeted exa ms where dose is matched to clinical indication); or iterative reconstruction.
[2023-02-02] MEDS: Haloperidol 5 MG/ML VIAL 2 MG IM (14:58)
--- NOTE | 2023-02-02 15:11 | NUR.NOTE ---
Nursing Note: Pt was seen and evaluated by Brianne SCHMITZ with this RN at bedside. It was determined that patient does not have capacity to make medical decisions for herself and does not understand the risks of leaving without treatment today. Additionally, patient's at bedside concurs with this finding and expresses desire to have his treated for her emergent condition. There is high risk of /injury if this condition goes untreated. Pt was spoken to by multiple staff members and was not agreeable to any treatments or even oral medications. Pt becomes combative and aggressive with any attempt at intervention. Per AINSLEY Evans order, soft restraints were initiated and medication was given per NOV.
--- NOTE | 2023-02-02 15:12 | W.ED.GENAD ---
Discharge Plan Disposition Patient Disposition: Admit to [facility] Condition: Stable Discharge Details Clinical Impression: GI (gastrointestinal bleed), Anemia, Schizoaffective disorder, Ulcerative colitis Admit Date/Time: 02/02/23 20:24 Admit Provider: Blayne Ribeiro Attending Provider: Blayne Ribeiro Primary Care Provider: Danie Sahni ED Provider: Brooklyn Rm Discharge Data Discharge Date/Time-TO BE ENTERED AT DEPARTURE: 02/02/23 21:59 Medical Decision Making <AINSLEY Chacon - Last Filed: 02/05/23 18:33> 67-year-old psychologically and medically complex female who presents from [facility] with her for GI bleed Reported bleeding for the past 6 to 8 months, progressively worsening bleeding per which is why they presented Patient is initially refusing any sort of assessment, IV, laboratory evaluation, while she is alert and oriented x3, she is not competent regarding her health care and is unable to follow her competently make healthcare decisions at time of my assessment When asked regarding the likely progression of her illness if she does not undergo treatment, she responds, I just want to go home and have lunch We had a long discussion regarding anemia and gastrointestinal bleeding and patient does not display competent medical decision making and therefore do not feel she is competent to make the decision to decline treatment at this time Her will now act as her medical decision maker and he is agreeable to this plan He wishes that patient undergo treatment and is agreeable to chemical therapy to assist with obtaining labs and further care We offered oral medications to calm patient down such as Ativan and Zyprexa, however patient has adamantly declined We therefore will place soft restraints for patient comfort and safety and administer Haldol 2 mg IV to treat patient's underlying schizoaffective disorder and mood disorder and Ativan 2 mg for anxiolysis We will then obtain labs, CT imaging, place patient on telemetry monitoring and obtain EKG, EKG was not obtained initially as patient has been uncooperative He transitioned to Marli Rm nurse practitioner pending diagnostic labs, CT imaging, likely transfusion for anemia, admission to the hospital This will be a complicated stay and she will likely need mental health involvement although right now I suspect she has metabolic encephalopathy from acute GI bleed and anemia in addition to anxiety associated with schizoaffective disorder <Brooklyn Rm NP - Last Filed: 02/02/23 22:04> 67-year-old psychologically and medically complex female who presents from [facility] care with her for GI bleed Reported bleeding for the past 6 to 8 months, progressively worsening bleeding per which is why they presented Patient is initially refusing any sort of assessment, IV, laboratory evaluation, while she is alert and oriented x3, she is not competent regarding her health care and is unable to follow her competently make healthcare decisions at time of my assessment When asked regarding the likely progression of her illness if she does not undergo treatment, she responds, I just want to go home and have lunch We had a long discussion regarding anemia and gastrointestinal bleeding and patient does not display competent medical decision making and therefore do not feel she is competent to make the decision to decline treatment at this time Her will now act as her medical decision maker and he is agreeable to this plan He wishes that patient undergo treatment and is agreeable to chemical therapy to assist with obtaining labs and further care We offered oral medications to calm patient down such as Ativan and Zyprexa, however patient has adamantly declined We therefore will place soft restraints for patient comfort and safety and administer Haldol 2 mg IV to treat patient's underlying schizoaffective disorder and mood disorder and Ativan 2 mg for anxiolysis We will then obtain labs, CT imaging, place patient on telemetry monitoring and obtain EKG, EKG was not obtained initially as patient has been uncooperative He transitioned to Marli Rm nurse practitioner pending diagnostic labs, CT imaging, likely transfusion for anemia, admission to the hospital This will be a complicated stay and she will likely need mental health involvement although right now I suspect she has metabolic encephalopathy from acute GI bleed and anemia in addition to anxiety associated with schizoaffective disorder 1553: SJ: Care assumed from provider (AINSLEY Chacon) Please see their initial HPI, PE, and documentation. Discussed patient details and case and pending workup and disposition. Patient is hemodynamically stable, and alert and oriented. At the time of signout patient is restrained, labs are being drawn, patient is a GI bleed please see previous notes. Will renew restraints orders. 1605: Discussed plan of care with and patient, patient is complaining that she is hungry. She can have ice chips and or mouth swab. I did discuss that she needs to be admitted to the hospital and received at least 2 units of blood her and her verbalized understanding. H&H is critically low with a hemoglobin of 4.5 and hematocrit 16.6. CMP shows potassium of 3.2, glucose 111 calcium is 7.9 albumin 2.2. 2 units of PRBCs ordered. Discussed plan of care with he verbalizes consent for blood administration 1640: Informed by cleaning staff supervisor that patient is unrestrained. Patient was unrestrained for toileting, is at bedside, patient calm and cooperative at this time. We will continue to observe. Restraint orders counseled at this time. 1836: Spoke with Dr. Pittman who is on for hospitalist he recommends consult with GI and/or surgery. 163: [facility] transfer center paged to consult with GI, images pushed. ESR CRP and stool studies ordered. 1907: Spoke with [facility] GI Dr. Mireles who recommends suportive care, fluids, blood, stool studies, stool josi protectin, established with outpatient GI, EGD and Colonoscopy urgently in next 1-2 weeks. No reccommendations for steroids. She will order a Colonoscopy and EGD in 1 week. Will re-page hospitalist. 193: Hospitalist paged. 2011: Spoke again with Dr. Dr. Quinonez who agrees to accept patient for admission. He recommends anemia labs such as ferritin B12 phosphate, 40 mg of methylprednisolone IV ordered. This text was generated using [employer] dictation system, please disregard any oddities of phrase or misspellings. Lab Data Lab results reviewed: Yes I reviewed the patient's lab results. Labs: Laboratory Tests Range/Units 02/02/23 02/02/23 02/02/23 15:37 15:37 15:37 WBC (4.4-10.8) 10^3/uL 8.55 RBC (3.93-5.22) 10^6/uL 2.72 L Hgb (11.2-15.7) g/dL 4.5 L* Hct (36.0-46.0) % 16.6 L* MCV (80-95) fL 61 L MCH (27.0-33.0) pg 16.5 L MCHC (32.0-36.0) % 27.1 L RDW (11.7-14.6) % 17.9 H Plt Count (130-400) 10^3/uL 437 H MPV (8.0-11.0) fL 9.0 Immature Gran % 0.6 Neutrophils % 74.5 Lymphocytes % 17.0 Monocytes % 7.0 Eosinophils % 0.5 Basophils % 0.4 Nucleated RBC % (0.0-0.3) % 0.0 Absolute Neutrophils (1.2-6.7) 10^3/uL 6.38 Absolute Lymphocytes (1.2-3.4) 10^3/uL 1.45 Absolute Monocytes (0.1-0.8) 10^3/uL 0.60 Absolute Eosinophils (0.0-0.7) 10^3/uL 0.04 Absolute Basophils (0.0-0.2) 10^3/uL 0.03 RBC Morphology See Below Polychromasia Present Hypochromasia 2+ Poikilocytosis 1+ Microcytosis 3+ ESR (0-30) mm/hr PT (9.3-11.0) sec INR (0.9-1.1) Sodium (136-145) mmol/L 137 Potassium (3.5-5.1) mmol/L 3.2 L Chloride (98-107) mmol/L 105 Carbon Dioxide (21.0-32.0) mmol/L 24.3 Anion Gap (3-11) mmol/L 7.7 BUN (7-18) mg/dL 10 Creatinine (0.55-1.02) mg/dL 0.8 Est GFR (CKD-EPI 2020) (mL/min/1.73m2) 81.72 Glucose (74-106) mg/dL 111 H Calcium (8.5-10.1) mg/dL 7.9 L Magnesium (1.8-2.4) mg/dL Total Bilirubin (0.2-1.0) mg/dL 0.4 AST (15-37) U/L 19 ALT (14-59) U/L 10 L Alkaline Phosphatase (46-116) U/L 74 C-Reactive Protein (0.0-0.3) mg/dL Total Protein (6.4-8.2) g/dL 5.9 L Albumin (3.4-5.0) g/dL 2.2 L Lipase (16-77) U/L 23 Patient ABO/Rh O Positive Antibody Screen NEGATIVE Crossmatch See Detail Range/Units 02/02/23 02/02/23 02/02/23 15:37 15:37 15:37 WBC (4.4-10.8) 10^3/uL RBC (3.93-5.22) 10^6/uL Hgb (11.2-15.7) g/dL Hct (36.0-46.0) % MCV (80-95) fL MCH (27.0-33.0) pg MCHC (32.0-36.0) % RDW (11.7-14.6) % Plt Count (130-400) 10^3/uL MPV (8.0-11.0) fL Immature Gran % Neutrophils % Lymphocytes % Monocytes % Eosinophils % Basophils % Nucleated RBC % (0.0-0.3) % Absolute Neutrophils (1.2-6.7) 10^3/uL Absolute Lymphocytes (1.2-3.4) 10^3/uL Absolute Monocytes (0.1-0.8) 10^3/uL Absolute Eosinophils (0.0-0.7) 10^3/uL Absolute Basophils (0.0-0.2) 10^3/uL RBC Morphology Polychromasia Hypochromasia Poikilocytosis Microcytosis ESR (0-30) mm/hr PT (9.3-11.0) sec 10.0 INR (0.9-1.1) 1.0 Sodium (136-145) mmol/L Potassium (3.5-5.1) mmol/L Chloride (98-107) mmol/L Carbon Dioxide (21.0-32.0) mmol/L Anion Gap (3-11) mmol/L BUN (7-18) mg/dL Creatinine (0.55-1.02) mg/dL Est GFR (CKD-EPI 2020) (mL/min/1.73m2) Glucose (74-106) mg/dL Calcium (8.5-10.1) mg/dL Magnesium (1.8-2.4) mg/dL 2.0 Total Bilirubin (0.2-1.0) mg/dL AST (15-37) U/L ALT (14-59) U/L Alkaline Phosphatase (46-116) U/L C-Reactive Protein (0.0-0.3) mg/dL Total Protein (6.4-8.2) g/dL Albumin (3.4-5.0) g/dL Lipase (16-77) U/L Cancelled Patient ABO/Rh Antibody Screen Crossmatch Range/Units 02/02/23 02/02/23 15:37 15:37 WBC (4.4-10.8) 10^3/uL RBC (3.93-5.22) 10^6/uL Hgb (11.2-15.7) g/dL Hct (36.0-46.0) % MCV (80-95) fL MCH (27.0-33.0) pg MCHC (32.0-36.0) % RDW (11.7-14.6) % Plt Count (130-400) 10^3/uL MPV (8.0-11.0) fL Immature Gran % Neutrophils % Lymphocytes % Monocytes % Eosinophils % Basophils % Nucleated RBC % (0.0-0.3) % Absolute Neutrophils (1.2-6.7) 10^3/uL Absolute Lymphocytes (1.2-3.4) 10^3/uL Absolute Monocytes (0.1-0.8) 10^3/uL Absolute Eosinophils (0.0-0.7) 10^3/uL Absolute Basophils (0.0-0.2) 10^3/uL RBC Morphology Polychromasia Hypochromasia Poikilocytosis Microcytosis ESR (0-30) mm/hr 15 PT (9.3-11.0) sec INR (0.9-1.1) Sodium (136-145) mmol/L Potassium (3.5-5.1) mmol/L Chloride (98-107) mmol/L Carbon Dioxide (21.0-32.0) mmol/L Anion Gap (3-11) mmol/L BUN (7-18) mg/dL Creatinine (0.55-1.02) mg/dL Est GFR (CKD-EPI 2020) (mL/min/1.73m2) Glucose (74-106) mg/dL Calcium (8.5-10.1) mg/dL Magnesium (1.8-2.4) mg/dL Total Bilirubin (0.2-1.0) mg/dL AST (15-37) U/L ALT (14-59) U/L Alkaline Phosphatase (46-116) U/L C-Reactive Protein (0.0-0.3) mg/dL 1.05 H Total Protein (6.4-8.2) g/dL Albumin (3.4-5.0) g/dL Lipase (16-77) U/L Patient ABO/Rh Antibody Screen Crossmatch HPI <AINSLEY Chacon - Last Filed: 02/05/23 18:33> General Date/Time Provider Initiated Documentation: 02/02/23 13:45. HPI Narrative: This 67-year-old female with a history of schizoaffective disorder, bipolar, ulcerative colitis presents with report of GI bleeding for the past 6 to 8 months per . She was sent here from [facility] with a reported hemoglobin of 4.2 on [id number]. is concerned as patient is quite pale and has been lightheaded at home with persistent bleeding. Describes about as being bright red. Also reports epigastric pain. This history and physical are limited secondary to patient's schizoaffective disorder/mood disorder and history was largely obtained from patient's . Related Data Home Medications Medication Instructions Recorded Confirmed risperidone 1 mg tablet (Risperdal) 1 mg PO BID #60 tabs 02/17/19 02/02/23 trazodone 50 mg tablet 50 mg PO HS #90 tab-caps 03/08/21 02/02/23 lorazepam 1 mg tablet 1 mg PO QHS PRN anxiety #30 tabs 03/16/21 02/02/23 prednisone 10 mg tablet See Taper PO DIRECTED #32 tabs 02/04/23 Previous Rx's Medication Instructions Recorded risperidone 1 mg tablet (Risperdal) 1 mg PO BID #60 tabs 02/17/19 trazodone 50 mg tablet 50 mg PO HS #90 tab-caps 03/08/21 lorazepam 1 mg tablet 1 mg PO QHS PRN anxiety #30 tabs 03/16/21 prednisone 10 mg tablet See Taper PO DIRECTED #32 tabs 02/04/23 Allergies Allergy/AdvReac Type Severity Reaction Status Date / Time No Known Drug Allergies Allergy Mild Verified 02/04/23 16:34 General Stated Complaint: GI Bleed ALEXEY: 3 PFSH <AINSLEY Chacon - Last Filed: 02/05/23 18:33> All Active Problems (Updated 02/05/23 @ 18:33 by AINSLEY Chacon) GI (gastrointestinal bleed) (Acute) Anemia (Acute) Dry skin (Acute) Anxiety (Chronic) Cerumen debris on tympanic membrane of both ears (Acute) Dysuria (Acute) Mood disorder (Acute) [facility] for medication previously - refusing to go recently - used to see Daliarupa Martin Hyperlipidemia (Acute 01/22/13) Schizoaffective disorder (Chronic) Bipolar disorder (Active) With catatonic features Ulcerative colitis (Chronic) Last colonoscopy with with Dr. Jose Mejias in [place], [place], March 2013 with normal study. Surgical History Cervical Procedure (08/31/10) ENDOMETRIAL BX Colonoscopy - [facility] 2001;2005;2009;2012 DR. MEJIAS Ligation of fallopian tube (~1987) Family History Mother Diabetes BORDERLINE Essential hypertension Father Heart disease Asthma Grandfather , FACTORY ACCIDENT at age 60. No problems noted. Grandfather No problems noted. Grandmother No problems noted. Grandmother No problems noted. Sister Asthma Brother No problems noted. Brother No problems noted. Brother No problems noted. Brother , HUNTING ACCIDENT at age 39. No problems noted. Social History Smoking/Tobacco Use Status: Never Second Hand Exposure: Yes Smoking risk assessment performed?: Yes Alcohol Intake: never Drug use: Never Substance use type: does not use Counseling given: No Counseling provided: none Household members: spouse Number of Children: 0 Pets and animals: No Duration: < 15 minutes/day Frequency: daily Rocio/Jehovah'S Witness: [employer]ism Special rocio needs: No Do you feel safe at home: Yes Do you feel safe in your relationship?: Yes Exam <AINSLEY Chacon - Last Filed: 02/05/23 18:33> Const General: ill appearing Orientation: alert, oriented to place and oriented to time Limitations: behavioral limitations HENMT Head: normal to inspection Other: Dry mucous membranes Eyes Pupils: PERRL Resp Effort & Inspection: normal respiratory effort Auscultation: clear to auscultation bilaterally Cardio Rate: regular rate Rhythm: regular rhythm GI Other: Tenderness to epigastrium Skin Other: pallor Neuro General: patient alert and patient oriented x3 Gait: normal gait Psych Appearance: disheveled Speech and Movement: agitated Mood: paranoid and labile mood Affect: labile affect Attitude: guarded and avoids eye contact Thought Process: illogical Thought Content: obsessions Insight: poor Judgment: poor Course <AINSLEY Chacon - Last Filed: 02/05/23 18:33> Vital Signs Vital signs: Vital Signs Temperature 37 C 02/02/23 13:41 Pulse 95 H 02/02/23 13:41 Respiratory Rate 18 02/02/23 13:41 Blood Pressure 127/63 02/02/23 13:41 Pulse Oximetry 99 02/02/23 13:41 Temperature 37 C 02/02/23 13:41 Temperature Source Oral 02/02/23 13:41 Pulse 95 H 02/02/23 13:41 Respiratory Rate 18 02/02/23 13:41 Respiratory Effort Normal, Non-Labored 02/02/23 13:49 Blood Pressure 127/63 02/02/23 13:41 Blood Pressure Position Supine 02/02/23 13:41 Pulse Oximetry 99 02/02/23 13:41 Oxygen Delivery Method Room Air 02/02/23 13:41 Oxygen Flow Rate 0 02/02/23 13:41 Pain Level 0 02/02/23 13:41 Sign Out <AINSLEY Chacon - Last Filed: 02/05/23 18:33> Sign Out Data: Sign Out Comment: pending labs, ct chest abd pelvis, GI bleed, anemia/transfusion, likely needing admission Last updated by Brianne Evans PA at 02/02/23 15:45
[2023-02-02 15:50] LABS: Abs Immature Grans 0.05 10^3/uL (0.0-0.06); Absolute Basophil Count 0.03 10^3/uL (0.0-0.2); Absolute Eosinophil Count 0.04 10^3/uL (0.0-0.7); Absolute Lymphocyte Count 1.45 10^3/uL (1.2-3.4); Absolute Neutrophil Count 6.38 10^3/uL (1.2-6.7); Basophils % 0.4; Eosinophils % 0.5; Immature Grans % 0.6; MCH 16.5 pg (27.0-33.0); MCHC 27.1 % (32.0-36.0); MCV 61 fL (80-95); Neutrophils % 74.5; Platelet Count 437 10^3/uL (130-400); RBC 2.72 10^6/uL (3.93-5.22); RDW 17.9 % (11.7-14.6); RDW-SD 38.4 fL; WBC 8.55 10^3/uL (4.4-10.8)
[2023-02-02 15:58] LABS: HGB 4.5 g/dL (11.2-15.7)
[2023-02-02 15:59] LABS: HCT 16.6 % (36.0-46.0)
[2023-02-02 16:01] LABS: ALT 10 U/L (14-59); AST 19 U/L (15-37); Albumin 2.2 g/dL (3.4-5.0); Alkaline Phosphatase 74 U/L (46-116); Anion Gap 7.7 mmol/L (3-11); BUN 10 mg/dL (7-18); Bilirubin, Total 0.4 mg/dL (0.2-1.0); CO2 24.3 mmol/L (21.0-32.0); CREATININE 0.8 mg/dL (0.55-1.02); Calcium 7.9 mg/dL (8.5-10.1); Chloride 105 mmol/L (98-107); Estimated GFR 81.72 (mL/min/1.73m2); Glucose 111 mg/dL (74-106); Lipase 23 U/L (16-77); Potassium 3.2 mmol/L (3.5-5.1); Sodium 137 mmol/L (136-145); Total Protein 5.9 g/dL (6.4-8.2)
[2023-02-02 16:09] LABS: Diff Comment RBC Morph Reviewed; Hypochromasia 2+; Microcytosis 3+
[2023-02-02 16:10] LABS: Poikilocytes 1+; Polychromasia Present
[2023-02-02] MEDS: Pantoprazole 40 MG VIAL IVP (16:26)
[2023-02-02] MEDS: Normal Saline 1,000 ML 300 ML IV (16:26)
[2023-02-02] MEDS: Haloperidol 5 MG/ML VIAL 2 MG IM/IV (16:26)
[2023-02-02] MEDS: Normal Saline Flush 10 ML SYR IVP (17:04)
[2023-02-02] MEDS: Normal Saline - Diluent 50 ML VIAL IJ (17:05)
[2023-02-02] MEDS: POTASSIUM CHLORIDE 10 MEQ/100 ML BAG 100 MEQ IVPB (17:26)
[2023-02-02] MEDS: Omnipaque 350 MG/ML 100 ML BTL IJ (17:31)
--- NOTE | 2023-02-02 17:56 | DI.VRAD_ITS ---
PROCEDURE INFORMATION: Exam: CT Chest With Contrast; Diagnostic Exam date and time: 02/02/2023 17:24 Age: 67 years old Clinical indication: Other: Epigastric pain, gi bleeding; Other: Epigastic pain, , gi bleeding TECHNIQUE: Imaging protocol: Diagnostic computed tomography of the chest with contrast. 3D rendering (Not supervised by radiologist): MIP and/or 3D reconstructed images were created by the technologist. Contrast material: OMNIPAQUE 350; Contrast volume: 100 ml; Contrast route: INTRAVENOUS (IV); COMPARISON: CR ABDOMEN 2 VIEW FLAT, UPRIGHT 12/28/2016 10:11 FINDINGS: Thyroid: Small thyroid nodules. Follow-up as per institutional protocol. Lungs: No airspace consolidation. A few scattered tiny pulmonary nodules. Follow-up as per institutional protocol. Pleural spaces: No pneumothorax. No pleural effusion. Heart: No cardiomegaly. No pericardial effusion. Lymph nodes: No enlarged lymph nodes. Vasculature: No aortic aneurysm. Bones/joints: No acute fracture. Soft tissues: No suspicious lesions. IMPRESSION: 1. No acute findings. 2. Incidental findings as described. PROCEDURE INFORMATION: Exam: CT Abdomen And Pelvis With Contrast Exam date and time: 02/02/2023 17:24 Age: 67 years old Clinical indication: Other: Epigastric pain, gi bleeding; Other: Epigastic pain, , gi bleeding TECHNIQUE: Imaging protocol: Computed tomography of the abdomen and pelvis with contrast. 3D rendering (Not supervised by radiologist): MIP and/or 3D reconstructed images were created by the technologist. Contrast material: OMNIPAQUE 350; Contrast volume: 100 ml; Contrast route: INTRAVENOUS (IV); COMPARISON: CR ABDOMEN 2 VIEW FLAT, UPRIGHT 12/28/2016 10:11 FINDINGS: Liver: No mass. Gallbladder and bile ducts: No calcified stones. No ductal dilation. Pancreas: No ductal dilation. No masses. Spleen: No splenomegaly or focal lesions. Adrenal glands: No mass. Kidneys and ureters: Favor benign extrarenal pelvis bilaterally with parapelvic cysts on the left. No renal masses or convincing hydronephrosis. Stomach and bowel: The stomach is decompressed and this makes the wall difficult to assess. No definite wall thickening. There could however be some mild edema surrounding the gastric cardia and body. Moderate wall thickening of the sigmoid colon associated with hyperemia of the colonic wall. Least mild descending colonic wall thickening, [id number] transverse and moderate right colonic wall thickening, motion artifact. There is some sparing of the cecum. No focal pathology in the small bowel. No pathologic colonic dilation. Appendix: No evidence of appendicitis. Intraperitoneal space: No free air. No significant fluid collection. Vasculature: No abdominal aortic aneurysm. Lymph nodes: No significantly enlarged lymph nodes. Urinary bladder: Unremarkable as visualized. Reproductive: Unremarkable as visualized. Bones/joints: No acute fracture. Soft tissues: No suspicious lesions. Other findings: Motion artifact in the abdomen. IMPRESSION: 1. [id number] near pancolitis. 2. Potential mild gastritis. 3. Additional findings as described. Dictated and Authenticated by: Norma Ramos MD. Ordering:JENNIFER Decker MD
[2023-02-02 18:44] LABS: ESR 15 mm/hr (0-30)
[2023-02-02 18:52] LABS: C-Reactive Protein 1.05 mg/dL (0.0-0.3)
--- NOTE | 2023-02-02 20:22 | HPE_ITS ---
Date of service: 02/02/23 Time of Service: 20:22 Assessment and Plan Assessment and plan (1) GI (gastrointestinal bleed): Start date: 02/02/23 Status: Acute Assessment and plan: Patient has a history of GI bleed but recently has had worsening of her GI bleed with bright red blood increasing and now found to be severely anemic though well compensated revealing that this is probably been a slow process with recent exacerbation. Platelet count is reactive and her RDW is high. Anemia profile has been sent. Patient will be transfused with whole red blood cells and long- term she will need endoscopies once stable. This may be done as outpatient with gastroenterology follow-up with patient noncompliant with these follow-ups in the past. This may be a challenge for her . (2) Anemia: Start date: 02/02/23 Status: Acute Assessment and plan: Patient has acute blood loss anemia with chronic anemia from her chronic untreated colitis. Nutrition may be a problem with her schizoaffective disorder as well. Transfuse with packed red blood cells to safe hemoglobin of above 8 and stool evaluation for other etiologies of bleeding other than her known ulcerative colitis. Cardiac monitoring. (3) Ulcerative colitis: Status: Chronic Assessment and plan: Patient may be having flare of ulcerative colitis though she has not had recent studies. IV Solu-Medrol and low-dose and surgical consultation during this hospitalization if needed or GI referral at discharge for nonurgent follow-up e ndoscopies and plan of care. (4) Schizoaffective disorder: Status: Chronic Assessment and plan: Reinitiate outpatient medical therapy for behavior control. Patient has been off medicines according to . She did require Haldol and Ativan in the ED to sedate for evaluation and treatment. We will have a sitter as needed. If she needs a chemical are soft restraints this will be done to protect the patient while treating her acute problems. Long-term mental health needs to follow-up with patient. Compliance may always be a problem. Her is the decision maker at this time. History of Present Illness History of Present Illness Chief Complaint: Bright red blood per rectum for 8 mo nths recently worsening Narrative: This is a 67-year-old female patient with schizophrenia off medications and noncompliant with now making medical decisions and patient in soft restraints with chemical restraints rendered in the ED to allow CT evaluation and lab. Patient was found to be progressively bleeding over 8 months worsening recently and becoming very pale though she did not have syncope or edema peripherally. She has a history of ulcerative colitis or colitis though recent evaluations have been limited. She was found to have a hemoglobin below 5 g/dL in the ED with tachycardia but no hypotension and was given 2 units of packed red blood cells. Her hemoglobin did rise to 8 g/dL after these transfusions and she was less tachycardic. The patient still appeared pale and was confused though not agitated and cooperative when she was on MedSurg not requiring supervision as she did in the ED. She had full evaluation for her anemia and should have follow-up with GI and will have stool evaluations while in the hospital since she has had C. difficile in the past and a question of loose stools with stool pathogens to be sent. She has had no antibiotic therapy recently and presently will be placed on IV steroids for possible flare of colitis by CT scan. This may be the cause of her recent GI bleeding which appear to be lower GI. Long-term she does need full evaluation by GI with upper and lower endoscopies on a nonurgent basis. She is a full code. Review of Systems Narrative: 13 point review of systems otherwise unrevealing or unobtainable by patient though offered by as stable other than her bleeding and noncompliance with psychiatric meds with worsening behavior as a schizophrenic. She has had no syncopal episodes though she may have been appearing more weak. She has had no peripheral edema as mentioned. [facility] All Active Problems (Updated 02/03/23 @ 00:24 by Blayne Ribeiro) GI (gastrointestinal bleed) (Acute) Anemia (Acute) Dry skin (Acute) Anxiety (Chronic) Cerumen debris on tympanic membrane of both ears (Acute) Dysuria (Acute) Mood disorder (Acute) [facility] for medication previously - refusing to go recently - used to see Dalia Martin Hyperlipidemia (Acute 01/22/13) Schizoaffective disorder (Chronic) Bipolar disorder (Active) With catatonic features Ulcerative colitis (Chronic) Last colonoscopy with with Dr. Jose Bobby in [place], [place], March 2013 with normal study. Surgical History Cervical Procedure (08/31/10) ENDOMETRIAL BX [place] [facility] [place];2005;2009;2012 DR. BOBBY Ligation of fallopian tube (~1987) Family History Mother Diabetes BORDERLINE Essential hypertension Father Heart disease Asthma Grandfather , FACTORY ACCIDENT at age 60. No problems noted. Grandfather No problems noted. Grandmother No problems noted. Grandmother No problems noted. Sister Asthma Brother No problems noted. Brother No problems noted. Brother No problems noted. Brother , HUNTING ACCIDENT at age 39. No problems noted. Social History Smoking/Tobacco Use Status: Never Second Hand Exposure: Yes Smoking risk assessment performed?: Yes Alcohol Intake: never Drug use: Never Substance use type: does not use Counseling given: No Counseling provided: none Household members: spouse Number of Children: 0 Pets and animals: No Duration: < 15 minutes/day Frequency: daily Rocio/Anglican: Confucianism Special rocio needs: No Do you feel safe at home: Yes Do you feel safe in your relationship?: Yes Meds Allergies and Home Medications Allergies Allergy/AdvReac Type Severity Reaction Status Date / Time prednisone AdvReac Severe Psychosis Verified 02/02/23 12:26 Home Medications Medication Instructions Recorded Confirmed Type risperidone 1 mg tablet (Risperdal) 1 mg PO BID #60 tabs 02/17/19 02/02/23 Rx trazodone 50 mg tablet 50 mg PO HS #90 tab-caps 03/08/21 02/02/23 Rx lorazepam 1 mg tablet 1 mg PO QHS PRN anxiety #30 tabs 03/16/21 02/02/23 Rx Exam Narrative Exam Narrative: General: Patient appears older than stated age, thin with odd, flattened affect and poor eye contact pacing her eyes on items around the room during conversation. She answers questions but sometimes inappropriately. She appears in moderate distress when awakened. When approached she was sleeping. She may be alert and oriented at least to person and place. HEENT: Normocephalic, coarsened facial features with flattened masklike facies, eyes with pupils equal react to light symmetrically, extraocular movement tact and sclera anicteric. Oropharynx with dry mucosa and poor dentition. Neck: Supple without JVD. Back: Stooped posture without CVA tenderness. Lungs: Clear to auscultation percussion with good aeration. Heart: Regular rate and rhythm with no appreciable murmur or gallop. Breast: Exam deferred. Abdomen: Scaphoid contour, soft and nontender to palpation with no palpable hepatosplenomegaly. Bowel sounds positive in all quadrants and slightly hyperactive. No focalizing tenderness. No guarding or rebound. Genitalia/rectal: Exam deferred. Bright red blood drips with attempts to have bowel movement in the ED reported. Extremities: Without clubbing, cyanosis or pitting edema. Peripheral pulses intact with fair cap refill. Skin: Pale, warm and dry. Neuro: Cranial nerves II to XII appear to be grossly intact, no focalizing motor deficits. No tremor. Psych: Flattened affect with patient appearing fearful at times with labile variability, mood appears depressed. No abnormal thought processes manifested that the patient wanders in conversation. Remote and recent memory not testable with the patient's schizoaffective disorder. Results Imaging Imaging Studies: Exam: CT Chest With Contrast; Diagnostic Exam date and time: 02/02/2023 17:24 Age: 67 years old Clinical indication: Other: Epigastric pain, gi bleeding; Other: Epigastic pain, , gi bleeding TECHNIQUE: Imaging protocol: Diagnostic computed tomography of the chest with contrast. 3D rendering (Not supervised by radiologist): MIP and/or 3D reconstructed images were created by the technologist. Contrast material: OMNIPAQUE 350; Contrast volume: 100 ml; Contrast route: INTRAVENOUS (IV);? COMPARISON: CR ABDOMEN 2 VIEW FLAT, UPRIGHT 12/28/2016 10:11 FINDINGS: Thyroid: Small thyroid nodules. Follow-up as per institutional protocol. Lungs: No airspace consolidation. A few scattered tiny pulmonary nodules. Follow-up as per institutional protocol. Pleural spaces: No pneumothorax. No pleural effusion. Heart: No cardiomegaly. No pericardial effusion. Lymph nodes: No enlarged lymph nodes. Vasculature: No aortic aneurysm.? Bones/joints: No acute fracture. Soft tissues: No suspicious lesions.? IMPRESSION: 1. ? No acute findings. 2. ? Incidental findings as described. PROCEDURE INFORMATION: Exam: CT Abdomen And Pelvis With Contrast Exam date and time: 02/02/2023 17:24 Age: 67 years old Clinical indication: Other: Epigastric pain, gi bleeding; Other: Epigastic pain, , gi bleeding TECHNIQUE: Imaging protocol: Computed tomography of the abdomen and pelvis with contrast. 3D rendering (Not supervised by radiologist): MIP and/or 3D reconstructed images were created by the technologist. Contrast material: OMNIPAQUE 350; Contrast volume: 100 ml; Contrast route: INTRAVENOUS (IV);? COMPARISON: CR ABDOMEN 2 VIEW FLAT, UPRIGHT 12/28/2016 10:11 FINDINGS: Liver: No mass. Gallbladder and bile ducts: No calcified stones. No ductal dilation. Pancreas: No ductal dilation. No masses.? Spleen: No splenomegaly or focal lesions. Adrenal glands: No mass. Kidneys and ureters: Favor benign extrarenal pelvis bilaterally with parapelvic cysts on the left. No renal masses or convincing hydronephrosis. Stomach and bowel: The stomach is decompressed and this makes the wall difficult to assess. No definite wall thickening. There could however be some mild edema surrounding the gastric cardia and body. Moderate wall thickening of the sigmoid colon associated with hyperemia of the colonic wall. Least mild descending colonic wall thickening, [id number] transverse and moderate right colonic wall thickening, motion artifact.? There is some sparing of the cecum.? No focal pathology in the small bowel. No pathologic colonic dilation. Appendix: No evidence of appendicitis. Intraperitoneal space: No free air. No significant fluid collection. Vasculature: No abdominal aortic aneurysm. Lymph nodes: No significantly enlarged lymph nodes. Urinary bladder: Unremarkable as visualized. Reproductive: Unremarkable as visualized. Bones/joints: No acute fracture. Soft tissues: No suspicious lesions.? Other findings: Motion artifact in the abdomen. IMPRESSION: 1. ? [id number] near pancolitis. 2. ? Potential mild gastritis. 3. ? Additional findings as described. Labs 02/02/23 23:35 02/02/23 15:37 Labs: Laboratory Results - last 24 hr 02/02/23 02/02/23 02/02/23 15:37 15:37 15:37 WBC 8.55 RBC 2.72 L Hgb 4.5 L* Hct 16.6 L* MCV 61 L MCH 16.5 L MCHC 27.1 L RDW 17.9 H Plt Count 437 H MPV 9.0 Immature Gran % 0.6 Neutrophils % 74.5 Lymphocytes % 17.0 Monocytes % 7.0 Eosinophils % 0.5 Basophils % 0.4 Nucleated RBC % 0.0 Absolute Neutrophils 6.38 Absolute Lymphocytes 1.45 Absolute Monocytes 0.60 Absolute Eosinophils 0.04 Absolute Basophils 0.03 RBC Morphology See Below Polychromasia Present Hypochromasia 2+ Poikilocytosis 1+ Microcytosis 3+ ESR PT INR Sodium 137 Potassium 3.2 L Chloride 105 Carbon Dioxide 24.3 Anion Gap 7.7 BUN 10 Creatinine 0.8 Est GFR (CKD-EPI 2020) 81.72 Glucose 111 H Calcium 7.9 L Magnesium Total Bilirubin 0.4 AST 19 ALT 10 L Alkaline Phosphatase 74 C-Reactive Protein Total Protein 5.9 L Albumin 2.2 L Lipase 23 Patient ABO/Rh O Positive Antibody Screen NEGATIVE Crossmatch See Detail 02/02/23 02/02/23 02/02/23 15:37 15:37 15:37 WBC RBC Hgb Hct MCV MCH MCHC RDW Plt Count MPV Immature Gran % Neutrophils % Lymphocytes % Monocytes % Eosinophils % Basophils % Nucleated RBC % Absolute Neutrophils Absolute Lymphocytes Absolute Monocytes Absolute Eosinophils Absolute Basophils RBC Morphology Polychromasia Hypochromasia Poikilocytosis Microcytosis ESR PT 10.0 INR 1.0 Sodium Potassium Chloride Carbon Dioxide Anion Gap BUN Creatinine Est GFR (CKD-EPI 2020) Glucose Calcium Magnesium 2.0 Total Bilirubin AST ALT Alkaline Phosphatase C-Reactive Protein Total Protein Albumin Lipase Cancelled Patient ABO/Rh Antibody Screen Crossmatch 02/02/23 02/02/23 15:37 15:37 WBC RBC Hgb Hct MCV MCH MCHC RDW Plt Count MPV Immature Gran % Neutrophils % Lymphocytes % Monocytes % Eosinophils % Basophils % Nucleated RBC % Absolute Neutrophils Absolute Lymphocytes Absolute Monocytes Absolute Eosinophils Absolute Basophils RBC Morphology Polychromasia Hypochromasia Poikilocytosis Microcytosis ESR 15 PT INR Sodium Potassium Chloride Carbon Dioxide Anion Gap BUN Creatinine Est GFR (CKD-EPI 2020) Glucose Calcium Magnesium Total Bilirubin AST ALT Alkaline Phosphatase C-Reactive Protein 1.05 H Total Protein Albumin Lipase Patient ABO/Rh Antibody Screen Crossmatch Last Vital Signs Temp 36.5 C 02/02/23 19:51 Pulse 109 H 02/02/23 19:51 Resp 28 H 02/02/23 19:51 BP 120/69 02/02/23 19:51 Pulse Ox 100 02/02/23 19:51 Time Spent Time spent with Patient: >75 minutes Time was spent: preparing to see the patient(eg.review tests), obtaining and/or reviewing separately otained hiistory, ordering medications,tests, procedures, referring, communicating with other health health care sanitary technician, indepentently interpreting results and care coordination
[2023-02-02] MEDS: methylPREDNISolone SUCC 40 MG VIAL IVP (20:42)
[2023-02-02] MEDS: LORazepam 2 MG/ML VIAL 0.5 MG IVP (20:42)
[2023-02-02 21:11] LABS: Iron 56 ug/dL (50-170); Total Iron Binding Capacity 341 ug/dL (250-450); Transferrin Sat 16 % (15-50)
[2023-02-02 21:29] LABS: Ferritin 4 ng/mL (8-252); Folate 19.3 ng/mL (8.6-20.0); Vitamin B12 873 pg/mL (193-986)
[2023-02-02 21:36] LABS: Troponin I < 50 ng/L (<or=60)
[2023-02-02] MEDS: traZODone 50 MG TAB PO (22:30)
--- NOTE | 2023-02-02 22:50 | NUR.NOTE ---
Nursing Note: Patient PAWSS assessment completed upon admission, when patient asked if she had consumed ETOH in the last 30 days, patient stated: Does [employer] count? This nurse responded yes, to which the patient then stated No, none of that for the last 30 days or the 30 days before.
[2023-02-02 23:30] LABS: C Diff PCR Negative (Negative)
[2023-02-02 23:38] LABS: HCT 26.8 % (36.0-46.0); HGB 8.1 g/dL (11.2-15.7)
--- NOTE | 2023-02-02 23:40 | NUR.NOTE ---
Nursing Note: CPSO discontinued at this time, sofie alarm set. Patient unsteady on feet, shuffling gait, impulsive. Patient affect sedated. Will continue to monitor closely.
[2023-02-03] VITALS (15 sets, daily range): BP systolic 94–127; BP diastolic 53–67; PULSE 89–108; RESP 16–19; TEMP 36–37.2; O2SAT 97–99
[2023-02-03] MEDS: Normal Saline Flush 10 ML SYR IVP ×3 (03:40→13:39)
[2023-02-03] MEDS: methylPREDNISolone SUCC 40 MG VIAL 20 MG IVP ×3 (03:41→22:25)
[2023-02-03 06:40] LABS: HGB 7.2 g/dL (11.2-15.7); MCH 20.3 pg (27.0-33.0); MCV 68 fL (80-95); MPV 9.1 fL (8.0-11.0); Platelet Count 465 10^3/uL (130-400); RBC 3.54 10^6/uL (3.93-5.22); RDW-SD 52.6 fL; WBC 9.49 10^3/uL (4.4-10.8)
[2023-02-03 07:14] LABS: RDW 22.1 % (11.7-14.6)
[2023-02-03 08:11] LABS: ALT 13 U/L (14-59); AST 16 U/L (15-37); Albumin 2.1 g/dL (3.4-5.0); Alkaline Phosphatase 99 U/L (46-116); Anion Gap 11.2 mmol/L (3-11); BUN 14 mg/dL (7-18); Bilirubin, Total 0.7 mg/dL (0.2-1.0); CO2 21.8 mmol/L (21.0-32.0); CREATININE 1.1 mg/dL (0.55-1.02); Chloride 107 mmol/L (98-107); Estimated GFR 55.76 (mL/min/1.73m2); Glucose 168 mg/dL (74-106); Potassium 3.4 mmol/L (3.5-5.1); Sodium 140 mmol/L (136-145)
[2023-02-03] MEDS: Pantoprazole 40 MG VIAL IVP (08:37)
[2023-02-03] MEDS: Potassium Chloride 20 MEQ TABCR PO ×3 (08:37→20:00)
--- NOTE | 2023-02-03 09:21 | INITIAL_ITS ---
- If Service Date Differs Date of service: 02/03/23 Time of Service: 09:21 Care Management Initial Assess REASON FOR HOSPITALIZATION:: Colitis, GI Bleed, Blood Loss Anemia PAST MEDICAL HISTORY/PAST SURGICAL HISTORY:: All Active Problems: GI (gastrointestinal bleed) (Acute), Anemia (Acute),. Dry skin (Acute), Anxiety (Chronic), Cerumen debris on tympanic membrane of both ears (Acute), Dysuria (Acute), Mood disorder (Acute) -. [facility] for medication previously - refusing to go recently - used to see Dalia Martin, Hyperlipidemia (Acute 01/22/13), Schizoaffective disorder (Chronic), Bipolar disorder (Active) - With catatonic features, and Ulcerative colitis (Chronic) - Last colonoscopy with with Dr. Jose Mejias in [place], [place], March 2013 with normal study. Surgical History: Cervical Procedure (08/31/10) - ENDOMETRIAL BX,. Colonoscopy - [facility] - 2 ;2005;2009;2012 DR. MEJIAS, and Ligation of fallopian tube (~1987). PREVIOUS FUNCTIONAL STATUS/SOCIAL/FAMILY SUPPORTS:: Kayla Haas lives in [place] with her Florencio, who is supportive of her. She is independent with her ADLs at baseline. Her reports when she is well, she helps to prepare meals and to take care of the house. CURRENT FUNCTIONAL STATUS:: Kayla Haas is sitting in a chair and is receiving a blood transfusion when CM comes to meet with her. Her Florencio is present in the room. She states she was told that once the transfusion is done she will be able to go home if her lab work looks good. Her expresses concern over her being sent home too soon. CM offers reassurance that the provider would not discharge her if she was not cleared to go home. ADVANCE DIRECTIVES:: None on file; offers AD and patient declines. Has patient been provided with info about the portal/API?: Yes Did the patient sign up for the portal?: Yes (Previously enrolled) CODE STATUS:: Full Code INSURANCE COVERAGE / FINANCIAL ISSUES:: Medicare. CURRENT HOME/COMMUNITY SERVICES/EQUIPMENT:: None. PRIMARY CARE PHYSICIAN:: ABI Saeed POTENTIAL DISCHARGE NEEDS:: Follow up appointments with PCP and Gastroenterology. PATIENT/FAMILY EDUCATION NEEDS:: Review of discharge instructions including medications, limitations and follow up plan of care; discuss Ask Me Three and self management. ANTICIPATED BARRIERS TO DISCHARGE:: None identified currently. TRANSPORTATION:: Via private vehicle with her . PLAN:: Kayla Haas will likely be discharged home with no services when medically cleared by provider. She will follow up with her PCP and plan of care as instructed. She will be transported home by her via private vehicle when ready. CM will continue to follow.
[2023-02-03] MEDS: Water,Injection,Bacteriostatic 30 ML VIAL IJ (13:39)
--- NOTE | 2023-02-03 17:37 | W.PM.PROGNOT ---
Date of Service Date of service: 02/03/23 Time of Service: 17:37 Assessment and Plan Assessment and plan (1) GI (gastrointestinal bleed): Start date: 02/02/23 Status: Acute Assessment and plan: GI bleed with bright red blood increasing Severely anemic though well compensated revealing that this is probably been a slow process with recent exacerbation. Hgb 4.5 in ED, 2 untis PRBCs; repeat 8.1, this am decreased to 7.2 - 3rd unit transfused; HgB pending Platelet count is reactive and her RDW is high. Anemia profile has been sent. Transfused with whole red blood cells x 3 and long-term she will need endoscopies once stable, outpatient v inpatient follow up with gastroenterology Pantoprazole IV (2) Anemia: Start date: 02/02/23 Status: Acute Assessment and plan: Patient has acute blood loss anemia with chronic anemia from her chronic untreated colitis. Nutrition may be a problem with her schizoaffective disorder as well. Transfuse with packed red blood cells to safe hemoglobin of above 8 and stool evaluation for other etiologies of bleeding other than her known ulcerative colitis. (3) Ulcerative colitis: Status: Chronic Assessment and plan: Patient may be having flare of ulcerative colitis though she has not had recent studies. IV Solu-Medrol - low-dose and surgical consultation during this hospitalization if needed or GI referral at discharge for nonurgent follow-up endoscopies and plan of care. (4) Schizoaffective disorder: Status: Chronic Assessment and plan: Reinitiate outpatient medical therapy for behavior control. Patient has been off medicines according to . She did require Haldol and Ativan in the ED to sedate for evaluation and treatment. Sitter as needed. Long-term mental health needs to follow-up with patient. Compliance may always be a problem. Her is the decision maker at this time. (5) Hypokalemia: Status: Acute Assessment and plan: Potassium 3.4; repleted with IV and oral potassium; monitor and replete prn (6) Medical contraindication to VTE prophylaxis: Status: Acute Assessment and plan: GI Bleed - SCDs (7) Discharge planning issues: Status: Acute Assessment and plan: Home when stable Endoscopy inpt v outpt - non compliant with follow up Mental health eval Discussed with Dr Mcgill Subjective Subjective Patient reports: no new complaints, tolerating a regular diet, voiding w/o difficulty, bowel movement and afebrile; denies diarrhea, nausea, vomiting or shortness of breath Interval history since last seen: Pale, CAOx4; pleasant, conversant, visited most of the day. She is agreeable to treatment. Exam Narrative Exam Narrative: General: Patient appears older than stated age, thin; she is CAOx4 HEENT: Normocephalic, coarsened facial features with flattened masklike facies, eyes with pupils equal react to light symmetrically, extraocular movement intact and sclera anicteric. Oropharynx with dry mucosa and poor dentition. Neck: Supple without JVD. Back: Stooped posture without CVA tenderness. Lungs: Clear to auscultation percussion with good aeration. Heart: Regular rate and rhythm with no appreciable murmur or gallop. Breast: Exam deferred. Abdomen: Scaphoid contour, soft and nontender to palpation with no palpable hepatosplenomegaly. Bowel sounds positive in all quadrants and slightly hyperactive. No focalizing tenderness. No guarding or rebound. Genitalia/rectal: Exam deferred. Extremities: Without clubbing, cyanosis or pitting edema. Peripheral pulses intact with fair cap refill. Skin: Very pale, warm and dry. Neuro: Cranial nerves II to XII appear to be grossly intact, no focalizing motor deficits. No tremor. Psych: Flattened affect; No abnormal thought processes; Remote and recent memory not testable with the patient's schizoaffective disorder. Objective Last Vital Signs Temp 37.1 C 02/03/23 16:12 Pulse 90 02/03/23 16:12 Resp 17 02/03/23 16:12 BP 107/62 02/03/23 16:12 Pulse Ox 97 02/03/23 16:12 Laboratory Results - last 24 hr 02/02/23 02/02/23 02/02/23 15:37 15:37 15:37 WBC RBC Hgb Hct MCV MCH MCHC RDW Plt Count MPV ESR 15 Sodium Potassium Chloride Carbon Dioxide Anion Gap BUN Creatinine Est GFR (CKD-EPI 2020) Glucose Calcium Magnesium Iron TIBC Transferrin % Sat Ferritin Total Bilirubin AST ALT Alkaline Phosphatase Troponin I C-Reactive Protein 1.05 H Total Protein Albumin Vitamin B12 Folate Stl C.difficile Tox PCR Patient ABO/Rh O Positive Antibody Screen NEGATIVE Crossmatch See Detail 02/02/23 02/02/23 02/02/23 20:33 20:33 20:33 WBC RBC Hgb Hct MCV MCH MCHC RDW Plt Count MPV ESR Sodium Potassium Chloride Carbon Dioxide Anion Gap BUN Creatinine Est GFR (CKD-EPI 2020) Glucose Calcium Magnesium Iron 56 TIBC 341 Transferrin % Sat 16 Ferritin 4 L Total Bilirubin AST ALT Alkaline Phosphatase Troponin I < 50 C-Reactive Protein Total Protein Albumin Vitamin B12 873 Folate 19.3 Stl C.difficile Tox PCR Patient ABO/Rh Antibody Screen Crossmatch 02/02/23 02/02/23 02/03/23 21:58 23:35 06:14 WBC RBC Hgb 8.1 L D Hct 26.8 L MCV MCH MCHC RDW Plt Count MPV ESR Sodium 140 Potassium 3.4 L Chloride 107 Carbon Dioxide 21.8 Anion Gap 11.2 H BUN 14 Creatinine 1.1 H Est GFR (CKD-EPI 2020) 55.76 Glucose 168 H Calcium 8.0 L Magnesium 2.0 Iron TIBC Transferrin % Sat Ferritin Total Bilirubin 0.7 AST 16 ALT 13 L Alkaline Phosphatase 99 Troponin I C-Reactive Protein Total Protein 6.0 L Albumin 2.1 L Vitamin B12 Folate Stl C.difficile Tox PCR Negative Patient ABO/Rh Antibody Screen Crossmatch 02/03/23 06:14 WBC 9.49 RBC 3.54 L Hgb 7.2 L Hct 24.0 L MCV 68 L D MCH 20.3 L MCHC 30.0 L D RDW 22.1 H Plt Count 465 H MPV 9.1 ESR Sodium Potassium Chloride Carbon Dioxide Anion Gap BUN Creatinine Est GFR (CKD-EPI 2020) Glucose Calcium Magnesium Iron TIBC Transferrin % Sat Ferritin Total Bilirubin AST ALT Alkaline Phosphatase Troponin I C-Reactive Protein Total Protein Albumin Vitamin B12 Folate Stl C.difficile Tox PCR Patient ABO/Rh Antibody Screen Crossmatch Time Spent with Patient Time Spent with Patient: 35-49 minutes Time was spent: preparing to see the patient(eg.review tests), ordering medications,tests, procedures, referring, communicating with other health coronary care unit nurse, indepentently interpreting results, counseling the patient and care coordination
[2023-02-03 18:01] LABS: HCT 29.6 % (36.0-46.0); HGB 9.3 g/dL (11.2-15.7)
[2023-02-03] MEDS: Water,Injection,Sterile 10 ML VIAL (22:26)
[2023-02-04] VITALS: PULSE 86
[2023-02-04 00:37] VITALS: O2SAT 97
[2023-02-04 04:25] VITALS: BP 100/65; PULSE 85; RESP 19; TEMP 36.5; O2SAT 97
[2023-02-04] MEDS: methylPREDNISolone SUCC 40 MG VIAL 20 MG IVP (05:33)
[2023-02-04] MEDS: Normal Saline Flush 10 ML SYR IVP (05:34)
[2023-02-04] MEDS: Water,Injection,Sterile 10 ML VIAL (05:34)
[2023-02-04 07:04] VITALS: PULSE 87
[2023-02-04 07:18] LABS: HCT 29.3 % (36.0-46.0); MCHC 30.7 % (32.0-36.0); MPV 8.6 fL (8.0-11.0); Platelet Count 474 10^3/uL (130-400); RDW-SD 57.1 fL; WBC 15.54 10^3/uL (4.4-10.8)
[2023-02-04] MEDS: risperiDONE 1 MG TAB PO (07:28)
[2023-02-04] MEDS: Pantoprazole 40 MG VIAL IVP (07:29)
[2023-02-04 07:33] LABS: ALT 16 U/L (14-59); AST 15 U/L (15-37); Albumin 2.4 g/dL (3.4-5.0); Alkaline Phosphatase 90 U/L (46-116); Anion Gap 6.9 mmol/L (3-11); BUN 18 mg/dL (7-18); Bilirubin, Total 0.3 mg/dL (0.2-1.0); CO2 25.1 mmol/L (21.0-32.0); CREATININE 0.8 mg/dL (0.55-1.02); Calcium 8.3 mg/dL (8.5-10.1); Chloride 107 mmol/L (98-107); Estimated GFR 81.72 (mL/min/1.73m2); Glucose 142 mg/dL (74-106); Potassium 4.7 mmol/L (3.5-5.1); Sodium 139 mmol/L (136-145); Total Protein 6.5 g/dL (6.4-8.2)
[2023-02-04 07:39] VITALS: BP 127/75; PULSE 87; RESP 17; TEMP 37; O2SAT 96
[2023-02-04 07:40] LABS: MCH 21.4 pg (27.0-33.0); MCV 70 fL (80-95); RDW 23.6 % (11.7-14.6)
[2023-02-04] MEDS: Acetaminophen 325 MG TAB PO (09:14)
--- NOTE | 2023-02-04 09:26 | W.PM.DS.N ---
Date of service: 02/04/23 Time of Service: 09:26 DS: Diagnosis Discharge Diagnosis (1) GI (gastrointestinal bleed): Status: Acute (2) Anemia: Status: Acute (3) Ulcerative colitis: Status: Chronic (4) Schizoaffective disorder: Status: Chronic (5) Hypokalemia: Status: Acute (6) Medical contraindication to VTE prophylaxis: Status: Acute (7) Discharge planning issues: Status: Acute Discharge Plan Disposition Patient Disposition: Home Condition: Improving Discharge Details Reason For Visit: Colitis, GI Bleed, Blood Loss Anemia Admit Date/Time: 02/02/23 20:24 Admit Provider: Blayne Ribeiro Attending Provider: Blayne Ribeiro Primary Care Provider: Danie Sahni Hospital Course Hospital Course: This is a 67-year-old female patient with past medical history of ulcerative colitis and schizophrenia, off her usually prescribed medications and generally noncompliant. Patient?s is now making medical decisions for her. She was brought to the [facility] ED by her on 02/03/2023 for progressive GI bleeding over 8 months, recently worsening and becoming very pale per her ?s description. In the ED? She was found to have a hemoglobin below 5 g/dL with tachycardia but no hypotension and was given 2 units of packed red blood cells.? Her hemoglobin did rise to 8 g/dL after these transfusions and she was less tachycardic.? She has had no antibiotic therapy.? She was started on IVF and IV steroids for possible flare of colitis by CT scan.?She is a full code. She was admitted to the medical floor for monitoring and she did receive a third unit of blood as her hemoglobin dropped.? Her hemoglobin now is 9.0. Her states she saw NICOLAS Reyna, in [place] and will not go back there.? She does not have a PCP, although she does have a future appointment at [facility] to establish care. She has not been taking her medication.? Her does not want her to take steroids because 30 diamante years ago she had a reaction to being acutely withdrawn from steroids.? I explained she has only had them here for two day, the home taper should help with inflammation, however it is her choice if she takes them, and emphasized it is not an abrupt discontinuation, it is a taper.? He did say he would give her the prednisone.? She will have labs checked on Sunday this week for H&H and lytes as she had some hypokalemia here.? She should follow up with GI as soon as there is an appointment available.? I did recommend N[facility]OL[facility] Steve in [place] and she said she is willing to see him, a referral was sent. It was recommended that she secure a PCP and be followed by someone regarding her pyschiatric medications.? She is being discharged to home, stable, with her . She was told to return to the ED if any more bright red GI bleeding occured. Her states they [address] [facility] and [place], he will take her to [place] as they have GI services there. Discussed with Dr Mcgill. Home Meds and New Rx's Prescriptions: New prednisone 10 mg tablet See Taper PO DIRECTED Qty: 32 0RF Taper: Prednisone 10mg taper 40 mg Daily for 3 Days and 0 Hour 30 mg Daily for 3 Days and 0 Hour 20 mg Daily for 3 Days and 0 Hour 10 mg Daily for 3 Days and 0 Hour 5 mg Daily for 3 Days and 0 Hour Rx Instructions: see taper instructions Continued risperidone [Risperdal] 1 mg tablet 1 mg PO BID Qty: 60 1RF Hold Instructions: Home Medication placed on hold at Doctor's office Patient Comments: pt states not taking any meds trazodone 50 mg tablet 50 mg PO HS Qty: 90 3RF Patient Comments: pt states not taking any meds lorazepam 1 mg tablet 1 mg PO QHS PRN (Reason: anxiety) Qty: 30 5RF Patient Comments: pt states not taking any meds Discharge Instructions Instructions: Prednisolone (By mouth), Gastrointestinal Bleeding (DC) Additional Instructions: Follow up with PCP this week regarding referral to GI and management of your psychiatric medications. Have your blood drawn on Sunday to check your hemoglobin and hematocrit and electrolytes. A referral has been sent to Dr Lombardo in [place]. Stand Alone Forms: Nursing Discharge Form Referrals: Danie Sahni NP [Primary Care Provider] - (Please make a follow up appointment for this week with your PCP ) Kwaku Lombardo [ NON-[facility] STAFF PHYSICIAN] - (1-2 weeks - colitis, GI bleeding) Activity:: Activity as Tolerated Equipment/Supplies:: No Equipment Needed Diet:: As Tolerated Discharge Orders Discharge Orders: Discharge Order (Routine); Ordered 02/04/23 Ordered By: Tonja Suarez Other Ambulatory Orders: Basic Metabolic Panel (Routine) Timeframe: 20230206 Location: None Selected Ordered By: Tonja Suarez Complete Blood Count w/Diff (Routine) Location: None Selected Ordered By: Tonja Suarez Discharge Data Discharge Date/Time-TO BE ENTERED AT DEPARTURE: 02/04/23 12:51 DS: Summary Time Spent with Patient providing and/or coordinating discharge services: Greater than 30 minutes Status at Discharge Functional status at discharge: independent ambulation Overall status at discharge: patient is progressing back to baseline Mental Status: mental status grossly normal Speech and Movement: speech and movement normal Mood: congruent mood Affect: normal affect Exam Narrative Exam Narrative: General: Patient appears older than stated age, thin; she is CAOx4, very pale HEENT: Normocephalic, coarsened facial features with flattened masklike facies, eyes with pupils equal react to light symmetrically, extraocular movement intact and sclera anicteric. Oropharynx with dry mucosa and poor dentition. Neck: Supple without JVD. Back: Stooped posture without CVA tenderness. Lungs: Clear to auscultation percussion with good aeration. Heart: Regular rate and rhythm with no appreciable murmur or gallop. Breast: Exam deferred. Abdomen: Scaphoid contour, soft and nontender to palpation with no palpable hepatosplenomegaly. Bowel sounds positive in all quadrants and slightly hyperactive. No focalizing tenderness. No guarding or rebound. Genitalia/rectal: Exam deferred. Extremities: Without clubbing, cyanosis or pitting edema. Peripheral pulses intact with fair cap refill. Skin: Very pale, warm and dry. Neuro: Cranial nerves II to XII appear to be grossly intact, no focalizing motor deficits. No tremor. Psych: Flattened affect; No abnormal thought processes; Remote and recent memory not testable with the patient's schizoaffective disorder. Psych Mental Status: mental status grossly normal Speech and Movement: speech and movement normal Mood: congruent mood Affect: normal affect DS: Data Vitals/I&O Vitals and I&O: Vital Signs Temperature 37 C 02/04/23 07:39 Temperature Source Tympanic 02/04/23 07:39 Pulse 87 02/04/23 07:39 Pulse Rhythm Regular 02/04/23 07:29 Pulse 100 H 02/02/23 21:50 Respiratory Rate 17 02/04/23 07:39 Respiratory Effort Normal 02/04/23 07:29 Respiratory Depth Normal 02/04/23 07:29 Respiratory Pattern Normal 02/04/23 07:29 Blood Pressure 127/75 02/04/23 07:39 Blood Pressure Mean 70 02/02/23 21:30 Blood Pressure Position Supine 02/02/23 13:41 Pulse Oximetry 96 02/04/23 07:39 Oxygen Delivery Method Room Air 02/04/23 07:39 Oxygen Flow Rate 0 02/04/23 07:39 Pain Level 8 02/04/23 09:14 Intake & Output 02/03/23 02/03/23 02/04/23 11:59 23:59 11:59 Intake Total 340 / 1421 1081 / 1421 300 / 300 Output Total 1225 / 3675 2450 / 3675 1650 / 1650 Balance -885 / -2254 -1369 / -2254 -1350 / -1350 Weight 48.4 kg 48.7 kg Intake: Oral 340 / 1171 831 / 1171 300 / 300 Blood Product 250 / 250 Rbc Leuko Reduced Unit 250 / 250 [id number] Output: Urine 1225 / 3675 2450 / 3675 1650 / 1650 Other: Urine Color Yellow Yellow Yellow Urine Appearance Clear Cloudy Clear Urine Odor Normal Normal Normal Stool Size Moderate Stool Characteristics Soft Voiding Methods Toilet Toilet Toilet Data Completed and Pending Labs on day of discharge: Labs from last 24 hours 02/04/23 02/04/23 02/03/23 07:10 07:10 17:45 WBC 15.54 H RBC 4.20 Hgb 9.0 L 9.3 L D Hct 29.3 L 29.6 L MCV 70 L MCH 21.4 L MCHC 30.7 L RDW 23.6 H Plt Count 474 H MPV 8.6 Sodium 139 Potassium 4.7 D Chloride 107 Carbon Dioxide 25.1 Anion Gap 6.9 BUN 18 Creatinine 0.8 Est GFR (CKD-EPI 2020) 81.72 Glucose 142 H Calcium 8.3 L Total Bilirubin 0.3 AST 15 ALT 16 Alkaline Phosphatase 90 Total Protein 6.5 Albumin 2.4 L Patient ABO/Rh Antibody Screen Crossmatch 02/02/23 15:37 WBC RBC Hgb Hct MCV MCH MCHC RDW Plt Count MPV Sodium Potassium Chloride Carbon Dioxide Anion Gap BUN Creatinine Est GFR (CKD-EPI 2020) Glucose Calcium Total Bilirubin AST ALT Alkaline Phosphatase Total Protein Albumin Patient ABO/Rh O Positive Antibody Screen NEGATIVE Crossmatch See Detail PFSH All Active Problems (Updated 02/03/23 @ 17:50 by Tonja Suarez NP) Hypokalemia (Acute) Discharge planning issues (Acute) Medical contraindication to VTE prophylaxis (Acute) GI (gastrointestinal bleed) (Acute) Anemia (Acute) Dry skin (Acute) Anxiety (Chronic) Cerumen debris on tympanic membrane of both ears (Acute) Dysuria (Acute) Mood disorder (Acute) [facility] for medication previously - refusing to go recently - used to see Dalia Martin Hyperlipidemia (Acute 01/22/13) Schizoaffective disorder (Chronic) Bipolar disorder (Active) With catatonic features Ulcerative colitis (Chronic) Last colonoscopy with with Dr. Jose Mejias in [place], [place], March 2013 with normal study. Surgical History Cervical Procedure (08/31/10) ENDOMETRIAL BX Colonoscopy - MAC 2001;2005;2009;2012 DR. MJEIAS Ligation of fallopian tube (~1987) Family History Mother Diabetes BORDERLINE Essential hypertension Father Heart disease Asthma Grandfather , FACTORY ACCIDENT at age 60. No problems noted. Grandfather No problems noted. Grandmother No problems noted. Grandmother No problems noted. Sister Asthma Brother No problems noted. Brother No problems noted. Brother No problems noted. Brother , HUNTING ACCIDENT at age 39. No problems noted. Social History Smoking/Tobacco Use Status: Never Second Hand Exposure: Yes Smoking risk assessment performed?: Yes Alcohol Intake: never Drug use: Never Substance use type: does not use Counseling given: No Counseling provided: none Household members: spouse Number of Children: 0 Pets and animals: No Duration: < 15 minutes/day Frequency: daily Rocio/Jewish: Restorationism Special rocio needs: No Do you feel safe at home: Yes Do you feel safe in your relationship?: Yes Time Spent with Patient Time Spent with Patient: 45-69 minutes Time was spent: preparing to see the patient(eg.review tests), ordering medications,tests, procedures, referring, communicating with other health child day care provider, indepentently interpreting results, counseling the patient and care coordination
[2023-02-04 11:03] LABS: Campylobacter PCR Negative (Negative); Salmonella PCR Negative (Negative); Shiga Toxin PCR Negative (Negative); Shigella/Enteroinvasive Ecoli Negative (Negative)
[2023-02-04 11:27] VITALS: PULSE 97
--- NOTE | 2023-02-04 12:38 | PDOC.CMDIS ---
- If Service Date Differs Date of service: 02/04/23 Time of Service: 12:38 LACE Index Scoring Tool - Questions: Length of Stay (in days): 2 Acuity (Admit via E.D.?): Yes E.D. Visits: 1 - Answers: Total Score: 6 Risk of Readmission: Low Risk Care Management Discharge Reason for Hospitalization: Colitis, GI Bleed, Blood Loss Anemia Discharge Plan: Kayla Haas will be discharged home with no new services. She will follow up with her PCP and plan of care as instructed and She will be transported home by her via private vehicle. Patient/Family Education Needs: Review of discharge instructions including medications, limitations and follow up plan of care; discuss Ask Me Three and self management.
[2023-02-05 09:41] LABS: Prolactin 19.6 ng/mL (See Note)
== END 2023-02-04 12:51 | disposition home or self-care (01) | DRG 386 ==
LOC: ER 20:38 → MS 21:53
PROVIDERS: Nurse Practitioner Family; Physician Assistant; Admitting Provider Family Medicine; Emergency Provider Registered Nurse Emergency; PCP Nurse Practitioner Family; Visit Provider Family Medicine
DX: K51.911 Ulcerative colitis, unspecified with rectal bleeding (principal); D62 Acute posthemorrhagic anemia; F31.89 Other bipolar disorder; F20.2 Catatonic schizophrenia; Z91.148 Patient's other noncompliance with medication regimen for other reason; F41.9 Anxiety disorder, unspecified; E78.5 Hyperlipidemia, unspecified; F21 Schizotypal disorder; E87.6 Hypokalemia; R00.0 Tachycardia, unspecified
CPT/HCPCS: 36410; 36415; 74177; 80053; 83690; 85027; 85652; 86850; 86900; 86901; 86920; 87493; 87505; 93005; 96361; 96365; 96375; 96376; 99285; 71260; 82607; 82728; 82746; 83540; 83550; 83735; 84146; 84484; 85014; 85018; 85025; 85610; 86140; 93010; 99223; 99232; 99239; J1630; J2060; J3480; J3490; P9016